=== PATIENT | male | born 1980 | race Caucasian/White ===

== ENCOUNTER 2019-04-05 13:36 | Emergency (ER) | payer OTHER, MEDICAID, SELFPAY ==
[2019-04-05 13:39] VITALS: BP 133/75; PULSE 77; RESP 14; TEMP 36.6; O2SAT 100; BMI 23.0
--- NOTE | 2019-04-05 15:32 | ED_ITS ---
HPI - Back Pain/Injury <DONNA Downey - Last Filed: 04/05/19 21:47> General Chief Complaint: Back Pain/Injury Stated Complaint: back pain Time Seen by Provider: 04/05/19 14:45 Source: patient History of Present Illness HPI Narrative: 39-year-old male presents to the emergency department complaining of right-sided lumbar back pain after throwing a tire into a truck 2 days ago. He states the pain is a dull aching spasming pain that has been worse today. Patient states the pain is worse with movement and bending over. Pain is better with walking. Patient denies any loss of bowel or bladder control, trauma to the area, numbness, tingling, loss of sensation, fevers, chills, nausea, vomiting, diarrhea, or other concerns. He states he has had back spasms in the past which usually resolve in about 2 weeks. Patient states that methocarbamol and tizanidine do not help with his muscle spasms. Related Data Home Medications Medication Instructions Recorded Confirmed quetiapine [Seroquel] 300 mg PO HS #0 tab 12/22/15 Previous Rx's Medication Instructions Recorded cyclobenzaprine 10 mg PO TID #20 tab 04/05/19 cyclobenzaprine 10 mg PO TID PRN #20 tab 04/05/19 Allergies Allergy/AdvReac Type Severity Reaction Status Date / Time Sulfa (Sulfonamide Allergy Unknown Verified 04/05/19 13:39 Antibiotics) [SULFA (SULFONAMIDE ANTIBIOTICS)] Review of Systems <DONNA Downey - Last Filed: 04/05/19 21:47> Review of Systems Narrative: REVIEW OF SYSTEMS: GENERAL: Denies fever or chills. HENT: No head trauma. EYES: No double vision or vision loss. CARDIOVASCULAR: No chest pain or syncope. RESPIRATORY: No shortness of breath or cough. GASTROINTESTINAL: No nausea, vomiting, diarrhea, or constipation. GENITOURINARY: No flank pain or dysuria. MUSCULOSKELETAL: Complains of right-sided lumbar pain, see HPI. INTEGUMENTARY: No rash, lesions, or pruritus. NEURO: No numbness, tingling. PSYCH: No behavior or mood changes. Patient History <DONNA Downey - Last Filed: 04/05/19 21:47> Medical History No significant medical problems (Acute) Social History Smoking Status: Current every day smoker Smoking Status: Current every day smoker alcohol intake frequency: holidays/special occasions only Substance Use Type: does not use Exam <DONNA Downey - Last Filed: 04/05/19 21:47> Initial Vital Signs Initial Vital Signs: Vital Signs Temperature 97.8 F 04/05/19 13:39 Pulse Rate 77 04/05/19 13:39 Respiratory Rate 14 04/05/19 13:39 Blood Pressure 133/75 04/05/19 13:39 Pulse Oximetry 100 04/05/19 13:39 PHYSICAL EXAMINATION: GENERAL: Well groomed, alert, and cooperative. Answers questions promptly and appropriately. Vital signs noted. HENT: Normocephalic, atraumatic. EYES: Symmetrical, sclera white, no periorbital swelling. CARDIOVASCULAR: S1 and S2 sounds normal. Regular rate and rhythm, no murmurs, clicks, or bruits. No pedal edema. RESPIRATORY: Normal respiratory rate, trachea midline, airway patent. No stridor, nasal flaring or accessory muscle use. Lungs are clear in all [place]. MUSCULOSKELETAL: Paraspinal vertebral tenderness worse on the left aspect versus the right, however present on both. Left lower lumbar tendeness along sciatica region, positive straight leg test. Patient is decreased flexion of spine due to pain. Normal gait and coordination. Equal tone and mass bilaterally. No spinal tenderness or deformities. EXTREMITIES: CMS intact. Pedal pulses 2+ intact bilaterally. SKIN: Warm, dry, soft, appropriate color for ethnicity. No lesions, rashes, or wounds. NEURO: Alert and Oriented X 3. No sensory deficits. Light touch sensation intact to medial and lateral aspect of lower extremities. PSYCH: Appropriate affect and mood. <Khari House MD - Last Filed: 04/09/19 08:07> Initial Vital Signs Initial Vital Signs: Vital Signs Temperature 97.8 F 04/05/19 13:39 Pulse Rate 77 04/05/19 13:39 Respiratory Rate 14 04/05/19 13:39 Blood Pressure 133/75 04/05/19 13:39 Pulse Oximetry 100 04/05/19 13:39 Course <DONNA Downey - Last Filed: 04/05/19 21:47> Course Course Narrative: Patient was given injection of Toradol and 5 mg of Valium which significantly helped with pain. Patient was given a ride home by his significant other. Orders Ordered: Discontinued Medications Diazepam (Valium) 5 mg PO NOW ONE Stop: 04/05/19 15:25 Last Admin: 04/05/19 15:40 Dose: 5 mg Documented by: WILMA Ketorolac Tromethamine (Toradol) 30 mg IM NOW ONE Stop: 04/05/19 15:23 Last Admin: 04/05/19 15:40 Dose: 30 mg Documented by: WILMA Vital Signs Vital signs: Vital Signs - 8 hr 04/05/19 16:05 Pulse Rate 83 Respiratory Rate 12 Blood Pressure [Left Arm] 110/82 Pulse Oximetry 97 <Khari House MD - Last Filed: 04/09/19 08:07> Orders Ordered: Discontinued Medications Diazepam (Valium) 5 mg PO NOW ONE Stop: 04/05/19 15:25 Last Admin: 04/05/19 15:40 Dose: 5 mg Documented by: WILMA Ketorolac Tromethamine (Toradol) 30 mg IM NOW ONE Stop: 04/05/19 15:23 Last Admin: 04/05/19 15:40 Dose: 30 mg Documented by: WILMA Vital Signs Vital signs: Vital Signs - 8 hr 04/05/19 16:05 Pulse Rate 83 Respiratory Rate 12 Blood Pressure [Left Arm] 110/82 Pulse Oximetry 97 MDM - Back Pain/Injury <DONNA Downey - Last Filed: 04/05/19 21:47> Medical Records Attestation: I reviewed the patient's medical records. Lab Data Attestation: I reviewed the patient's lab results. MDM Narrative Medical decision making narrative: This is a 39-year-old male who presents emergency department with what appears to be musculoskeletal pain after lifting a tire into a truck. Less concern for spinal fracture due to lack of spinal tenderness and lack of trauma. Differential includes muscle strain, muscle spasms, and lumbar strain, these diagnoses are most likely. However, differential also includes degenerative disc disease and arthritis. Less likely cauda equina due to full sensation of lower extremities, and lack of loss of bowel or bladder control. Patient was discharged with cyclobenzaprine encouraged to take ibuprofen for the next few days. Patient agree of plan of care verbalized understanding. He was encouraged to follow up with his primary care provider in 1-2 weeks for further evaluation of his back pain. Discharge Plan Departure Patient Disposition: Home Clinical Impression: Back spasm Lumbar strain Qualifiers: Encounter type: initial encounter Qualified Code(s): S39.012A - Strain of muscle, fascia and tendon of lower back, initial encounter Discharge Date/Time: 04/05/19 16:17 Instructions: DI for Low Back Pain, DI for Back Spasm Activity Restrictions/Additional Instructions: Thank you for entrusting me with your care today. As discussed, I suspect your back pain is most likely caused by a lumbar strain and back spasms. I prescribed you a muscle relaxer, please be aware that this medication can make you drowsy, do not drive while taking this. Your medication was sent to [facility]. I suggest taking 600 mg of ibuprofen every 6 hours for the next 2-3 days to help with pain. Follow up with your primary care provider in 1-2 weeks for further evaluation. Return emergency department for new or worsening symptoms such as numbness, tingling, loss of bowel or bladder control, or other concerns. Prescriptions: New cyclobenzaprine 10 mg tablet 10 mg PO TID Qty: 20 RF: 0 cyclobenzaprine 10 mg tablet 10 mg PO TID PRN (Reason: muscle spasm) Qty: 20 RF: 0 No Action quetiapine [Seroquel] 300 MG tablet 300 mg PO HS Qty: 0 RF: 0
[2019-04-05] MEDS: KETOROLAC 60 MG/2 ML VIAL 30 MG IM (15:40)
[2019-04-05] MEDS: diazePAM 5 MG TABLET PO (15:40)
[2019-04-05 16:05] VITALS: BP 110/82; PULSE 83; RESP 12; O2SAT 97
== END 2019-04-05 16:17 | disposition home or self-care (01) ==
PROVIDERS: Emergency Provider Nurse Practitioner
DX: M62.830 Muscle spasm of back (principal); S39.012A Strain of muscle, fascia and tendon of lower back, initial encounter
CPT/HCPCS: 96372; 99283; J1885

== ENCOUNTER 2019-10-01 12:16 | Emergency (ER) | payer OTHER, MEDICAID, SELFPAY ==
[2019-10-01 12:38] VITALS: BP 130/76; PULSE 90; RESP 12; TEMP 36.7; O2SAT 98; BMI 23.6
[2019-10-01 13:00] VITALS: BP 108/62; PULSE 89; O2SAT 98
[2019-10-01 13:45] VITALS: BP 105/65; PULSE 77; RESP 14; O2SAT 98
--- NOTE | 2019-10-01 15:04 | ED_ITS ---
HPI - Skin/Abscess/Foreign Bdy <DONNA Cervantes - Last Filed: 10/01/19 15:30> General Chief complaint: Skin/Abscess/Foreign Body Stated complaint: abcess on his left arm Time Seen by Provider: 10/01/19 12:44 Source: patient Mode of arrival: Ambulatory Limitations: no limitations History of Present Illness HPI narrative: This is a 39-year-old male, smoker and IV heroin drug use prese nts to ED with chief complain of 2nd abscess developing on non dominant left arm in radial aspect of antecubital fossa slightly above the current I and D abscess. Patient has been seen several walk-in clinic in [facility] over 1 week and this is his 4th visit to hospital/clinic since he had initial visit to the clinic. Patient states he has a frustrated that abscess has not been drained as much. The patient was started on clindamycin initially and changed to doxycycline yesterday after the culture result came back as MRSA. Patient is also taking meloxicam 7.5 mg b.i.d. for pain management. Patient reports relapsed after cleaned from using drugs and currently uses heroin and appears to be he is under the influence before coming into ED. Patient denies fever, chills, nausea or vomiting at this time. Patient has been manually expressing during hot shower on I and D site to express discharge and has been using warm pack occasionally. Related Data Home Medications Medication Instructions Recorded Confirmed quetiapine [Seroquel] 300 mg PO HS #0 tab 12/22/15 Previous Rx's Medication Instructions Recorded cyclobenzaprine 10 mg PO TID #20 tab 04/05/19 cyclobenzaprine 10 mg PO TID PRN #20 tab 04/05/19 Allergies Allergy/AdvReac Type Severity Reaction Status Date / Time Sulfa (Sulfonamide Allergy Unknown Verified 04/05/19 13:39 Antibiotics) [SULFA (SULFONAMIDE ANTIBIOTICS)] Review of Systems <DONNA Cervantes - Last Filed: 10/01/19 15:30> Review of Systems Narrative: General: Denies fever, chills, fatigue, malaise, sweats. HEENT: Denies sinus pain, ear pain, sore throat, difficulty swallowing, dizziness. Respiratory: Denies dyspnea, cough, wheezing, hemoptysis, sputum. Cardiovascular: Denies chest pain, palpitations, orthopnea, edema. Gastrointestinal: Denies nausea, vomiting, abdominal pain, diarrhea, constipation, melena. : Denies dysuria, frequency, incontinence, hematuria, urinary retention. Musculoskeletal: Denies weakness, joint pain or bony pain. Skin: See HPI Neurologic: Denies weakness, headache, numbness, change in speech, confusion, seizures, incoordination. Psychiatric: No concerning psychosocial issues. 12-point review of systems is negative except for those stated above. Patient History <DONNA Cervantes - Last Filed: 10/01/19 15:30> Medical History No significant medical problems (Acute) Social History (Updated 10/01/19 @ 15:21 by DONNA Cervantes) Smoking Status: Current every day smoker substance use type: heroin and IV drugs Smoking Status: Current every day smoker alcohol intake frequency: holidays/special occasions only Substance Use Type: does not use Exam <DONNA Cervantes - Last Filed: 10/01/19 15:30> Narrative Exam Narrative: General appearance: well developed, well nourished, in no acute distress. Head: normocephalic, atraumatic, no scalp lesions, non-tender. ENT: Bilateral auditory canals and tympanic membranes clear. Hearing grossly intact. Nose without bleeding, purulent discharge, septal hematoma or deviation. Turbinate without erythema or swelling. Facial sinuses nontender to palpate. Mucous membrane moist, no mucosal lesion. Throat without erythema, tonsillar hypertrophy or exudate. Uvula in midline, airway patent. Neck/Thyroid: neck supple, full range of motion, no visible masses or meningeal signs. No JVD, non-tender without lymphadenopathy. Skin: Approximately 2 cm vertical incision with about 1cm tunneling in left slightly inferior to antecubital fossa packed with string draining purulent discharge. Second erythematous and indurated nodule in about 3 cm in diameter in radial aspect of left antecubital fossae without fluctuance near I and D site. Slightly warm to palpate. Denies significant pain per palpation. There was several well-healed incisional wounds in right volar wrist, right anterior upper thigh from previous I and D's. Warm and dry and appropriate color for ethnicity. Heart: no clubbing, no cyanosis, no edema. Lungs: Breathing even and unlabored. No stridor. No accessory muscles used. Able to speak in full sentences. Chest: normal shape and expansion. Abdomen: non-obese, non-distended. Neurologic: alert and oriented but appears to be drowsy with difficulty with keeping eyes fully opened. Patient is conversive below appropriately. Cognitive exam, MINK SLICER and PNS grossly intact on informal exam. Psych: good eye contact, normal affect. Initial Vital Signs Initial Vital Signs: Vital Signs Temperature 98.1 F 10/01/19 12:38 Pulse Rate 90 10/01/19 12:38 Respiratory Rate 12 10/01/19 12:38 Blood Pressure 130/76 10/01/19 12:38 Pulse Oximetry 98 10/01/19 12:38 <Diego Middleton MD - Last Filed: 10/01/19 19:06> Initial Vital Signs Initial Vital Signs: Vital Signs Temperature 98.1 F 10/01/19 12:38 Pulse Rate 90 10/01/19 12:38 Respiratory Rate 12 10/01/19 12:38 Blood Pressure 130/76 10/01/19 12:38 Pulse Oximetry 98 10/01/19 12:38 Scores <DONNA Cervantes - Last Filed: 10/01/19 15:30> qSOFA Altered Mental Status (GCS <15): No Respiratory rate greater than/equal to 22: No Systolic blood pressure less than or equal to 100: No qSOFA Total: 0 0-1 Not High Risk 1-3 High risk Course <DONNA Cervantes - Last Filed: 10/01/19 15:30> Vital Signs Vital signs: Vital Signs - 8 hr 10/01/19 12:38 10/01/19 13:00 10/01/19 13:45 Temperature 98.1 F Pulse Rate 90 89 77 Respiratory Rate 12 14 Blood Pressure 130/76 108/62 105/65 Pulse Oximetry 98 98 98 <Diego Middleton MD - Last Filed: 10/01/19 19:06> Vital Signs Vital signs: Vital Signs - 8 hr 10/01/19 12:38 10/01/19 13:00 10/01/19 13:45 Temperature 98.1 F Pulse Rate 90 89 77 Respiratory Rate 12 14 Blood Pressure 130/76 108/62 105/65 Pulse Oximetry 98 98 98 MDM - Skin/Abscess/Foreign Bdy <DONNA Cervantes - Last Filed: 10/01/19 15:30> Differential Diagnosis Differential diagnosis: Likely abscess of skin or subcutaneous tissue and cellulitis MDM Narrative Medical decision making narrative: This is a 39 year male who presents to ED with wound recheck on I&D site and another abscess adjacent to I&D site. Second nodule appears to be not ready for I&D with indurated erythematous nodule in radial aspect of antecubital fossae. Patient advised to use warm pack frequently to speed the process. He is currently taking culture and sensitivity appropriate doxycycline that has been prescribed by other clinic. Patient is afebrile with within normal vital signs. qSOFA score is 0. Patient has been seen at other clinic for repacking procedure. I have repacked his wound today. Return precautions were discussed with the patient and patient verbalized understanding in agreement with treatment plan. Discharge Plan Departure Patient Disposition: Home Clinical Impression: Wound abscess Discharge Date/Time: 10/01/19 13:46 Instructions: DI for Skin Abscess Activity Restrictions/Additional Instructions: You have been diagnosed with [left arm abscess, I and D has been done previously and today we checked wound, wound repacking. The new abscess on your left inner elbow appears be not ready for an abscess since it has mostly indurated nodule. Please continue with frequent warm pack and soaking to speed the process to get ready for I&D.]. What to do: *Take your medications as directed. Please continue your current doxycycline as directed *Follow up with your primary care provider in 2-3 days, call for an appointment. Let them know you were seen in the ED and that we asked you to be seen in follow up and wound recheck and packing. *Return to ED if you have any new, worsening, or concerning symptoms, such as [fever, chills, nausea, vomiting, increasing pain/swelling/warmth, chest pain, breathing difficulty or any acute concerns]. Prescriptions: No Action quetiapine [Seroquel] 300 MG tablet 300 mg PO HS Qty: 0 RF: 0 cyclobenzaprine 10 mg tablet 10 mg PO TID Qty: 20 RF: 0 cyclobenzaprine 10 mg tablet 10 mg PO TID PRN (Reason: muscle spasm) Qty: 20 RF: 0
== END 2019-10-01 13:46 | disposition home or self-care (01) ==
PROVIDERS: Emergency Provider Nurse Practitioner Family
DX: L02.414 Cutaneous abscess of left upper limb (principal); F19.90 Other psychoactive substance use, unspecified, uncomplicated
CPT/HCPCS: 99281

== ENCOUNTER 2020-05-23 18:44 | Emergency (ER) | payer OTHER, MEDICAID, SELFPAY ==
[2020-05-23 18:51] VITALS: BP 137/80; PULSE 118; RESP 20; TEMP 38.3; O2SAT 97; BMI 23.7
== END 2020-05-23 19:18 | disposition left against medical advice (07) ==
PROVIDERS: Emergency Provider Emergency Medicine
CPT/HCPCS: 99281

== ENCOUNTER 2020-05-24 15:25 | Emergency (ER) | payer OTHER, MEDICAID, SELFPAY ==
[2020-05-24 15:42] VITALS: BP 127/79; PULSE 115; RESP 16; TEMP 37.6; O2SAT 96; BMI 23.0
--- NOTE | 2020-05-24 15:49 | DI.RAD.S_ITS ---
PROCEDURE: XR CHEST 1V INDICATIONS: suspected sepsis TECHNIQUE: One view of the chest was acquired. COMPARISON: None. FINDINGS: Surgical changes and devices: None. Lungs and pleura: Lungs are clear. No pleural effusions or pneumothorax. Mediastinum: Mediastinal contours appear normal. Heart size is normal. Bones and chest wall: No suspicious bony lesions. Overlying soft tissues appear unremarkable. IMPRESSION: No evidence acute pulmonary process. Dictated by: Tye Nixon M.D. on 05/24/2020 at 16:30 Approved by: Tye Nixon M.D. on 05/24/2020 at 16:31
[2020-05-24] MEDS: KETOROLAC 60 MG/2 ML VIAL 30 MG IM (16:50)
[2020-05-24] MEDS: LORazepam 0.5 MG TABLET PO (16:50)
[2020-05-24 16:57] VITALS: BP 117/80; PULSE 117; RESP 24; TEMP 37.7; O2SAT 99
--- NOTE | 2020-05-24 18:03 | ED_ITS ---
HPI - Skin/Abscess/Foreign Bdy General Chief complaint: Skin/Abscess/Foreign Body Stated complaint: a few abcesses he wants looked at Time Seen by Provider: 05/24/20 17:51 History of Present Illness HPI narrative: 40-year-old gentleman with a history of IV drug use presents with abscess draining on the medial aspect of his right calf and cellulitis with firmness without full fluctuance developing the right forearm. He was successful on Suboxone for an extended period of time in over the last 3 months has had a return to use of IV heroin. Does not describe significant fevers, cough, chest pain, abdominal pain, dysuria, diarrhea or constipation. Related Data Home Medications Medication Instructions Recorded Confirmed quetiapine [Seroquel] 300 mg PO HS #0 tab 12/22/15 Previous Rx's Medication Instructions Recorded cyclobenzaprine 10 mg PO TID #20 tab 04/05/19 cyclobenzaprine 10 mg PO TID PRN #20 tab 04/05/19 buprenorphine-naloxone [Suboxone] 3 film BUCCAL DAILY #9 ea 05/24/20 cephalexin 500 mg PO TID #21 cap 05/24/20 clindamycin HCl 300 mg PO TID #21 cap 05/24/20 Allergies Allergy/AdvReac Type Severity Reaction Status Date / Time Sulfa (Sulfonamide Allergy Unknown Verified 05/23/20 18:54 Antibiotics) [SULFA (SULFONAMIDE ANTIBIOTICS)] Review of Systems Review of Systems Narrative: Remainder of review of systems including constitutional, ENT, cardiovascular, respiratory, GI, , musculoskeletal, skin, neurologic and psychiatric systems reviewed and are unremarkable except as noted in HPI. Patient History Medical History IVDU (intravenous drug user) Social History Smoking Status: Current every day smoker substance use type: heroin and IV drugs Smoking Status: Current every day smoker tobacco type: cigarettes alcohol intake frequency: holidays/special occasions only Substance Use Type: heroin Exam Narrative Exam Narrative: General: Healthy appearing, in no acute distress. Able to give a complete and coherent history. Well-nourished well-developed HEENT: Moist mucous membranes, normal sclera with reactive pupils, Neck: No JVD, supple Respiratory: Lungs are clear to auscultation, no wheezing no rales no rhonchi. Full and symmetrical air movement Cardiac: Regular rate and rhythm no murmurs with careful auscultation, no bruits Abdomen: Soft, nontender, good bowel tones, no flank pain Skin: Warm and dry, developing cellulitis approximately 5 x 5 cm with central area of firmness but no fluctuance on the right forearm. Cellulitis proximally 10 x 10 cm with a 5 cm area of fluctuance is beginning to drain the medial aspect of the right calf. Healing abscess left groin with no residual cellulitis drainage or pain but fiber center still appreciated. Neurologic: Grossly neurologically intact with no obvious asymmetries or abnormalities Extremities: No trauma, well perfused Psych: Cooperative, appropriate insight and affect Initial Vital Signs Initial Vital Signs: Vital Signs Temperature 99.6 F 05/24/20 15:42 Pulse Rate 115 H 05/24/20 15:42 Respiratory Rate 16 05/24/20 15:42 Blood Pressure 127/79 05/24/20 15:42 Pulse Oximetry 96 05/24/20 15:42 Course Orders Ordered: Discontinued Medications Sodium Chloride (Normal Saline 0.9%) 1,000 mls @ 1,000 mls/hr IV BOLUS ONE Stop: 05/24/20 16:48 Last Infusion: 05/24/20 20:15 Dose: 0 mls/hr Documented by: Admin: 05/24/20 18:49 Dose: 1,000 mls/hr Documented by: BRENDAN Vancomycin HCl/Dextrose (Vancomycin) 1,500 mg in 300 mls @ 200 mls/hr IV NOW ONE Stop: 05/24/20 20:31 Last Infusion: 05/24/20 21:45 Dose: 0 mls/hr Documented by: Admin: 05/24/20 20:15 Dose: 200 mls/hr Documented by: BRENDAN Ceftriaxone Sodium/Dextrose (Rocephin) 2 gm in 50 mls @ 100 mls/hr IV NOW ONE Stop: 05/24/20 19:31 Last Infusion: 05/24/20 20:15 Dose: 0 mls/hr Documented by: Admin: 05/24/20 19:35 Dose: 100 mls/hr Documented by: BRENDAN Ketorolac Tromethamine (Ketorolac 60 Mg/2 Ml Vial) 30 mg IM NOW ONE Stop: 05/24/20 16:42 Last Admin: 05/24/20 16:50 Dose: 30 mg Documented by: BEVERLY Lorazepam (Lorazepam 0.5 Mg Tablet) 0.5 mg PO NOW ONE Stop: 05/24/20 16:42 Last Admin: 05/24/20 16:50 Dose: 0.5 mg Documented by: BEVERLY Nicotine (Nicotine 21 Mg Patch) 21 mg TOP NOW ONE Stop: 05/24/20 17:52 Last Admin: 05/24/20 18:48 Dose: 21 mg Documented by: BRENDAN Vital Signs Vital signs: Vital Signs - 8 hr 05/24/20 22:27 Pulse Rate 82 Respiratory Rate 14 Blood Pressure 116/75 Pulse Oximetry 98 MDM - Skin/Abscess/Foreign Bdy Medical Records Attestation: I reviewed the patient's medical records. Lab Data Attestation: I reviewed the patient's lab results. Result diagrams: 05/24/20 18:22 05/24/20 18:22 Labs: Lab Results 05/24/20 05/24/20 05/24/20 Range/Units 18:22 18:22 18:22 WBC 12.2 H (4.5-11.0) X10^3/uL RBC 3.81 L (4.5-5.9) X10^6/uL Hgb 11.3 L (13.5-17.5) g/dL Hct 33.4 L (41-53) % MCV 87.7 (80-100) fL MCH 29.7 (26-34) PG MCHC 33.9 (30-36) % RDW 14.1 (11.6-14.8) % Plt Count 239 (150-400) X10^3/uL Neut % (Auto) 76.4 H (50-75) % Lymph % (Auto) 13.6 L (25-40) % [place] % (Auto) 8.7 (3-14) % Eos % (Auto) 1.0 L (2-4) % Baso % (Auto) 0.3 (0-2) % Neut # (Auto) 9300 H (8186-7215) /uL Lymph # (Auto) 1700 (3898-6251) /uL [place] # (Auto) 1100 H (0-900) /uL Eos # (Auto) 100 (0-450) /uL Baso # (Auto) 0 (0-100) /uL PT 15.3 H (10.1-12.7) SECONDS INR 1.4 H (0.9-1.3) APTT 32 (26.4-36.2) SECONDS Sodium 131 L (137-145) mmol/L Potassium 4.1 (3.4-5.1) mmol/L Chloride 99 (98-107) mmol/L Carbon Dioxide 28 (22-32) mmol/L BUN 9 (9-20) mg/dL Creatinine 0.77 (0.66-1.25) mg/dL Estimated GFR > 60.0 (>60) mL/min BUN/Creatinine Ratio 11.7 (6-22) Glucose 122 H (70-100) mg/dL Lactate (0.7-2.1) mmol/L Calcium 8.6 (8.4-10.2) mg/dL Total Bilirubin 0.4 (0.2-1.3) mg/dL AST 25 (17-59) IU/L ALT 15 (<50) IU/L Alkaline Phosphatase 63 (38-126) U/L Total Protein 6.5 (6.3-8.2) g/dL Albumin 3.5 (3.5-5.0) g/dL Globulin 3.0 (1.7-4.1) g/dL Albumin/Globulin Ratio 1.2 (1.0-2.8) Lipase 23 (23-300) U/L Procalcitonin 0.06 (<0.5) ng/mL 05/24/20 Range/Units 18:22 WBC (4.5-11.0) X10^3/uL RBC (4.5-5.9) X10^6/uL Hgb (13.5-17.5) g/dL Hct (41-53) % MCV (80-100) fL MCH (26-34) PG MCHC (30-36) % RDW (11.6-14.8) % Plt Count (150-400) X10^3/uL Neut % (Auto) (50-75) % Lymph % (Auto) (25-40) % [place] % (Auto) (3-14) % Eos % (Auto) (2-4) % Baso % (Auto) (0-2) % Neut # (Auto) (3853-6754) /uL Lymph # (Auto) (3976-1266) /uL [place] # (Auto) (0-900) /uL Eos # (Auto) (0-450) /uL Baso # (Auto) (0-100) /uL PT (10.1-12.7) SECONDS INR (0.9-1.3) APTT (26.4-36.2) SECONDS Sodium (137-145) mmol/L Potassium (3.4-5.1) mmol/L Chloride (98-107) mmol/L Carbon Dioxide (22-32) mmol/L BUN (9-20) mg/dL Creatinine (0.66-1.25) mg/dL Estimated GFR (>60) mL/min BUN/Creatinine Ratio (6-22) Glucose (70-100) mg/dL Lactate 1.0 (0.7-2.1) mmol/L Calcium (8.4-10.2) mg/dL Total Bilirubin (0.2-1.3) mg/dL AST (17-59) IU/L ALT (<50) IU/L Alkaline Phosphatase (38-126) U/L Total Protein (6.3-8.2) g/dL Albumin (3.5-5.0) g/dL Globulin (1.7-4.1) g/dL Albumin/Globulin Ratio (1.0-2.8) Lipase (23-300) U/L Procalcitonin (<0.5) ng/mL Urine Dip Bedside Urine Glucose Negative Bedside Urine Bilirubin - Negative Bedside Urine Ketone - Negative Urine Specific [place] 1.015 Bedside Urine Occult Blood - Negative Bedside Urine pH 7.0 Bedside Urine Protein - Negative Bedside Urine Urobilinogen - Negative Bedside Urine Nitrite - Negative Bedside Urine Leukocytes - Negative Esterase MDM Narrative Medical decision making narrative: 40-year-old gentleman with a history of IV drug use significant difficulty obtaining IV access. A left external jugular line was placed by me. He is noted to have draining abscess right calf that is opened with an 11 blade needle cultured abscess cavity is explored and rinsed with saline. Area of cellulitis and phlegmon on the forearm is not yet developed into a drainable abscess. No evidence of endocarditis or sepsis. Given a dose of vancomycin and ceftriaxone in the emergency department and will be discharged home with a week of clindamycin and Keflex (is allergic to Septra ). We also discussed his IV drug use and return to Suboxone. He is interested in returning to Suboxone use. I have given him a prescription for 3 days which will get him through his [facility] appointment to be scheduled for Tuesday. At this point he is safe for home discharge Discharge Plan Departure Patient Disposition: Home Clinical Impression: Abscess of skin or subcutaneous tissue Qualifiers: Site of cutaneous abscess: extremity Site of cutaneous abscess of extremity: lower extremity Laterality: right Qualified Code(s): L02.415 - Cutaneous abscess of right lower limb Cellulitis Qualifiers: Site of cellulitis: extremity Site of cellulitis of extremity: upper extremity Laterality: right Qualified Code(s): L03.113 - Cellulitis of right upper limb Instructions: DI for Skin Abscess Activity Restrictions/Additional Instructions: Thank you for coming in tonight There is no evidence of overwhelming infection The abscess on your calf has been drained, please pull the packing out on Tuesday or Tuesday You will need to complete course of antibiotics and I am going to have you use both clindamycin and Keflex. Prescriptions have been electronically sent to [facility] in [place] I have given you 3 days of Suboxone, please contact [facility] on Tuesday to set up follow-up appointment. Getting back to Suboxone and sobriety is going to be 1 of the healthiest things you can do for yourself If you have fevers, chills or worsening signs of infection, please return to the emergency department Prescriptions: New clindamycin HCl 300 mg capsule 300 mg PO TID Qty: 21 RF: 0 cephalexin 500 mg capsule 500 mg PO TID Qty: 21 RF: 0 buprenorphine-naloxone [Suboxone] 8-2 mg film 3 film buccal DAILY Qty: 9 RF: 0 No Action quetiapine [Seroquel] 300 MG tablet 300 mg PO HS Qty: 0 RF: 0 cyclobenzaprine 10 mg tablet 10 mg PO TID Qty: 20 RF: 0 cyclobenzaprine 10 mg tablet 10 mg PO TID PRN (Reason: muscle spasm) Qty: 20 RF: 0
--- NOTE | 2020-05-24 18:06 | PC.NURSE ---
patient has multiple abscess on his body. right inner calf, right outer calf, left inguinal space, right inner forearm
[2020-05-24 18:41] LABS: INR 1.4 (0.9-1.3); Prothrombin Time 15.3 SECONDS (10.1-12.7)
[2020-05-24 18:44] LABS: PTT Partial Thromboplastin Tim 32 SECONDS (26.4-36.2)
[2020-05-24 18:45] LABS: Add Manual Diff / Slide Review NO; Basophils Absolute Auto 0 /uL (0-100); Basophils Percent Auto 0.3 % (0-2); Eosinophils Absolute Auto 100 /uL (0-450); Hematocrit 33.4 % (41-53); Hemoglobin 11.3 g/dL (13.5-17.5); Lymphocytes Absolute Auto 1700 /uL (1100-4500); Lymphocytes Percent Auto 13.6 % (25-40); Mean Corpuscular HGB Conc 33.9 % (30-36); Mean Corpuscular Hemoglobin 29.7 PG (26-34); Mean Corpuscular Volume 87.7 fL (80-100); Monocytes Absolute Auto 1100 /uL (0-900); Monocytes Percent Auto 8.7 % (3-14); Neutrophils Absolute Auto 9300 /uL (1500-7000); Neutrophils Percent Auto 76.4 % (50-75); Platelet Count 239 X10^3/uL (150-400); Red Blood Cell Count 3.81 X10^6/uL (4.5-5.9); Red Cell Distribution Width 14.1 % (11.6-14.8); White Blood Cell Count 12.2 X10^3/uL (4.5-11.0)
[2020-05-24] MEDS: NICOTINE 21 MG PATCH TOP (18:48)
[2020-05-24] MEDS: SODIUM CHLORIDE 0.9% 1,000 ML 1000 ML IV (18:49)
[2020-05-24 18:56] LABS: Alanine Aminotransferase 15 IU/L (<50); Albumin 3.5 g/dL (3.5-5.0); Albumin Globulin Ratio 1.2 (1.0-2.8); Alkaline Phosphatase 63 U/L (38-126); Aspartate Aminotransferase 25 IU/L (17-59); BUN Creatinine Ratio 11.7 (6-22); Bilirubin Total 0.4 mg/dL (0.2-1.3); Blood Urea Nitrogen 9 mg/dL (9-20); Calcium 8.6 mg/dL (8.4-10.2); Carbon Dioxide 28 mmol/L (22-32); Chloride 99 mmol/L (98-107); Estimated Glomerular Filt Rate > 60.0 mL/min (>60); Glucose 122 mg/dL (70-100); Lipase 23 U/L (23-300); Potassium 4.1 mmol/L (3.4-5.1); Sodium 131 mmol/L (137-145); Total Protein 6.5 g/dL (6.3-8.2)
[2020-05-24 18:57] LABS: HEMOLYSIS 63 (0-50)
[2020-05-24 19:13] LABS: Procalcitonin 0.06 ng/mL (<0.5)
[2020-05-24] MEDS: CEFTRIAXONE 2 GM/50 ML FROZ.PIGGY IV (19:35)
[2020-05-24] MEDS: VANCOMYCIN 1,500 MG/300 ML PIGGYBACK 200 MG IV (20:15)
[2020-05-24 21:26] VITALS: BP 120/74; PULSE 79; RESP 14; O2SAT 98
[2020-05-24 22:27] VITALS: BP 116/75; PULSE 82; RESP 14; O2SAT 98
[2020-05-24] MEDS: LIDOCAINE 1% (PF) 8 ML (22:27)
== END 2020-05-24 22:29 | disposition home or self-care (01) ==
PROVIDERS: Emergency Medicine; Emergency Provider Emergency Medicine
DX: L02.415 Cutaneous abscess of right lower limb (principal); L03.113 Cellulitis of right upper limb
CPT/HCPCS: 10060; 36415; 36569; 71045; 80053; 81003; 83605; 83690; 84145; 85025; 85610; 85730; 87040; 93005; 96361; 96365; 96367; 96372; 99283; 99284; J0696; J1885

== ENCOUNTER 2020-05-26 16:13 | Emergency (ER) | payer OTHER, MEDICAID, SELFPAY ==
[2020-05-26 16:18] VITALS: BP 123/74; PULSE 90; RESP 18; TEMP 36.8; O2SAT 96; BMI 23.0
== END 2020-05-26 18:01 | disposition left against medical advice (07) ==
PROVIDERS: Emergency Provider Emergency Medicine
CPT/HCPCS: 99281

== ENCOUNTER 2020-08-04 14:20 | Emergency (ER) | payer OTHER, MEDICAID, SELFPAY ==
[2020-08-04 14:29] VITALS: BP 133/79; PULSE 84; RESP 16; TEMP 36.1; O2SAT 100; BMI 23.1
--- NOTE | 2020-08-04 14:32 | ED_ITS ---
HPI - Skin/Abscess/Foreign Bdy General Chief complaint: Skin/Abscess/Foreign Body Stated complaint: huge abscess on right thigh Time Seen by Provider: 08/04/20 14:26 Source: patient Mode of arrival: Ambulatory Limitations: no limitations History of Present Illness HPI narrative: Patient is a 40-year-old male who has had some degree of changing story but is here for evaluation of a abscess on his right thigh. He initially thought that it was a bruise that was caused when he hit his leg on a piece of furniture. 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 He has had multiple abscesses in the past requiring incision and drainage. He denies any fevers. Swelling is been worsening during this time. He then told nursing staff that he injected himself with heroin at this point. He told me that he does use heroin but has not injected himself in his leg in ?sometime ?give way he is here for evaluation of an abscess to his right thigh. Related Data Home Medications Medication Instructions Recorded Confirmed quetiapine [Seroquel] 300 mg PO HS #0 tab 12/22/15 Previous Rx's Medication Instructions Recorded cyclobenzaprine 10 mg PO TID #20 tab 04/05/19 cyclobenzaprine 10 mg PO TID PRN #20 tab 04/05/19 buprenorphine-naloxone [Suboxone] 3 film BUCCAL DAILY #9 ea 05/24/20 cephalexin 500 mg PO TID #21 cap 05/24/20 clindamycin HCl 300 mg PO TID #21 cap 05/24/20 doxycycline hyclate 100 mg PO BID 7 Days #14 tab 08/04/20 Allergies Allergy/AdvReac Type Severity Reaction Status Date / Time Sulfa (Sulfonamide Allergy Unknown Verified 08/04/20 14:32 Antibiotics) [SULFA (SULFONAMIDE ANTIBIOTICS)] Review of Systems Constitutional Constitutional: Denies fever(s) Cardiovascular Cardiovascular: Reports system reviewed and no additional complaints, except as documented Respiratory Respiratory: Reports system reviewed and no additional complaints, except as documented Musculoskeletal Comments: Right thigh pain Integumentary/Breasts Skin/Breast: Reports system reviewed and no additional complaints, except as documented Comments: Swelling and redness to right eye Hematologic/Lymphatic On Anticoagulants: No Allergic/Immunologic Allergic/Immunologic: Reports system reviewed and no additional complaints, except as documented Patient History Medical History IVDU (intravenous drug user) Social History Smoking Status: Current every day smoker substance use type: heroin and IV drugs Smoking Status: Current every day smoker tobacco type: cigarettes alcohol intake frequency: holidays/special occasions only Substance Use Type: heroin Exam Initial Vital Signs Initial Vital Signs: Vital Signs Temperature 97.0 F L 08/04/20 14:29 Pulse Rate 84 08/04/20 14:29 Respiratory Rate 16 08/04/20 14:29 Blood Pressure 133/79 08/04/20 14:29 Pulse Oximetry 100 08/04/20 14:29 Const General: cooperative and comfortable Limitations: mental status not altered HENMT Head: normal to inspection and normocephalic Skin Other: Patient with a palm size area of redness and induration on the right anterior thigh. There is fluctuance under this area. Extrem Other: Right hip and right knee unremarkable Psych Appearance: grossly normal and well kempt Procedures Abscess I/D I&D #1: Site: other (Right thigh) Side (if applicable): right Local Anesthetic: lidocaine 1% and with bicarb Amount of anesthesia used (mL): 10 Technique: incised with #11 blade Irrigation: No Packing used?: iodoform Complications: other (None) Course Orders Ordered: Discontinued Medications Lidocaine/Sodium Bicarbonate (Lido 1%/Sod Bicarb 8.4% (10ml) 10 Ml Syringe) 10 ml INJ NOW ONE Stop: 08/04/20 14:34 Vital Signs Vital signs: Vital Signs - 8 hr 08/04/20 14:29 Temperature 97.0 F L Pulse Rate 84 Respiratory Rate 16 Blood Pressure 133/79 Pulse Oximetry 100 MDM - Skin/Abscess/Foreign Bdy MDM Narrative Medical decision making narrative: Has a large abscess/cellulitis on his right thigh. Patient is nontoxic appearing. Bedside ultrasound does confirm an abscess. Incision was made with drainage of a large amount of purulent material. Packing was placed to keep the wound open. Will start the patient on doxycycline is he has been on this in the past and seems to help his symptoms. I do not feel patient needs admitted to the hospital for IV antibiotics. He was given return precautions and care instructions. He expressed understanding and agreement. Discharge Plan Departure Patient Disposition: Home Clinical Impression: Abscess, Cellulitis Instructions: DI for Incision and Drainage of a Skin Abscess, DI for Skin Abscess Activity Restrictions/Additional Instructions: A prescription for antibiotics was electronically transmitted to [email or web address]. I recommend that you start taking them as directed. You can shower like normal. You can pull the packing out in 48 hours and then continue to cover with a bandage. Contact your primary provider for follow-up. Return to the emergency department for any new or worsening symptoms Prescriptions: New doxycycline hyclate 100 mg tablet 100 mg PO BID 7 Days Qty: 14 RF: 0 No Action quetiapine [Seroquel] 300 MG tablet 300 mg PO HS Qty: 0 RF: 0 cyclobenzaprine 10 mg tablet 10 mg PO TID Qty: 20 RF: 0 cyclobenzaprine 10 mg tablet 10 mg PO TID PRN (Reason: muscle spasm) Qty: 20 RF: 0 clindamycin HCl 300 mg capsule 300 mg PO TID Qty: 21 RF: 0 cephalexin 500 mg capsule 500 mg PO TID Qty: 21 RF: 0 buprenorphine-naloxone [Suboxone] 8-2 mg film 3 film buccal DAILY Qty: 9 RF: 0
[2020-08-04] MEDS: LIDO 1%/SOD BICARB 8.4% (10ML) 10 ML SYRINGE INJ (15:16)
[2020-08-04 15:20] VITALS: BP 130/68; PULSE 85; RESP 16; O2SAT 97
== END 2020-08-04 15:23 | disposition home or self-care (01) ==
PROVIDERS: Emergency Provider Emergency Medicine
DX: L02.415 Cutaneous abscess of right lower limb (principal); L03.115 Cellulitis of right lower limb
CPT/HCPCS: 10060; 99283

== ENCOUNTER 2020-08-15 16:56 | Emergency (ER) | payer OTHER, MEDICAID, SELFPAY ==
[2020-08-15 17:03] VITALS: BP 148/86; PULSE 106; RESP 18; TEMP 36.9; O2SAT 96; BMI 23.7
--- NOTE | 2020-08-15 17:08 | ED.SKABFB ---
HPI - Skin/Abscess/Foreign Bdy General Chief complaint: Skin/Abscess/Foreign Body Stated complaint: LEFT EYE ABSCESS Time Seen by Provider: 08/15/20 17:02 Source: patient Mode of arrival: Ambulatory Limitations: no limitations History of Present Illness HPI narrative: Patient is a 40-year-old male. Despite the stated complaint he has a left thigh abscess not a left eye abscess. I evaluated the patient and drained an abscess in his right thigh a couple weeks ago. This was the result of injecting himself intramuscularly. He states that soon after he had the issue with his right thigh he developed redness in his left thigh. It has gotten larger and more painful. Has surrounding redness. He states that he does not use new needles but uses his own needles. He does not sure them with anyone. Has not tried anything for his these symptoms prior to arrival. Related Data Home Medications Medication Instructions Recorded Confirmed quetiapine [Seroquel] 300 mg PO HS #0 tab 12/22/15 Previous Rx's Medication Instructions Recorded cyclobenzaprine 10 mg PO TID #20 tab 04/05/19 cyclobenzaprine 10 mg PO TID PRN #20 tab 04/05/19 buprenorphine-naloxone [Suboxone] 3 film BUCCAL DAILY #9 ea 05/24/20 cephalexin 500 mg PO TID #21 cap 05/24/20 clindamycin HCl 300 mg PO TID #21 cap 05/24/20 doxycycline hyclate 100 mg PO BID 7 Days #14 tab 08/15/20 ibuprofen 800 mg PO TID PRN #30 tab 08/15/20 Allergies Allergy/AdvReac Type Severity Reaction Status Date / Time Sulfa (Sulfonamide Allergy Unknown Verified 08/15/20 17:02 Antibiotics) [SULFA (SULFONAMIDE ANTIBIOTICS)] Review of Systems Constitutional Constitutional: Denies fever(s) Musculoskeletal Musculoskeletal: Denies tingling Comments: Redness and swelling and discomfort to left thigh Integumentary/Breasts Comments: Redness to left thigh Neurologic Neurologic: Denies tingling Hematologic/Lymphatic On Anticoagulants: No Allergic/Immunologic Allergic/Immunologic: Reports system reviewed and no additional complaints, except as documented Patient History Medical History IVDU (intravenous drug user) Social History Smoking Status: Current every day smoker substance use type: heroin and IV drugs Smoking Status: Current every day smoker tobacco type: cigarettes alcohol intake frequency: holidays/special occasions only Substance Use Type: heroin Exam Initial Vital Signs Initial Vital Signs: Vital Signs Temperature 98.5 F 08/15/20 17:03 Pulse Rate 106 H 08/15/20 17:03 Respiratory Rate 18 08/15/20 17:03 Blood Pressure 148/86 H 08/15/20 17:03 Pulse Oximetry 96 08/15/20 17:03 Const General: cooperative HENMT Head: normal to inspection and normocephalic Resp Effort & Inspection: normal respiratory effort Cardio Rate: tachycardic Skin Other: Patient with a large area of redness on his left anterior thigh with a central large area induration. No active drainage. Neuro General: patient alert and patient awake Extrem Other: For range of motion of left hip and left knee. Psych Appearance: grossly normal and well kempt Procedures Abscess I/D I&D #1: Site: lower extremity Side (if applicable): left Local Anesthetic: lidocaine 1% and with bicarb Amount of anesthesia used (mL): 10 Technique: incised with #11 blade Irrigation: No Packing used?: iodoform Complications: other (None) Course Orders Ordered: Discontinued Medications Doxycycline Hyclate (Doxycycline Hyclate 100 Mg Tablet) 100 mg PO NOW ONE Stop: 08/15/20 17:24 Ibuprofen (Ibuprofen 400 Mg Tablet) 800 mg PO NOW ONE Stop: 08/15/20 17:24 Lidocaine/Sodium Bicarbonate (Lido 1%/Sod Bicarb 8.4% (10ml) 10 Ml Syringe) 10 ml INJ NOW ONE Stop: 08/15/20 17:09 Last Admin: 08/15/20 17:14 Dose: 10 ml Documented by: Vital Signs Vital signs: Vital Signs - 8 hr 08/15/20 17:03 Temperature 98.5 F Pulse Rate 106 H Respiratory Rate 18 Blood Pressure 148/86 H Pulse Oximetry 96 MDM - Skin/Abscess/Foreign Bdy MDM Narrative Medical decision making narrative: Physical exam today consistent with abscess and surrounding cellulitis on his left thigh. Is very similar in appearance to what was on his right thigh. Bedside ultrasound shows a large abscess. This abscess was drained with local anesthesia. A large amount of purulent material was drained. Packing was placed to keep the wound open. Last time patient was here he stated that he received doxycycline. We will place him back on this medication. He is given a dose here in the emergency department. He was given return precautions and follow-up instructions. I do feel that a trial of oral antibiotics at home is warranted in this case however he was instructed to return if his symptoms worsen. Discharge Plan Departure Patient Disposition: Home Clinical Impression: Abscess, Cellulitis Instructions: DI for Incision and Drainage of a Skin Abscess Activity Restrictions/Additional Instructions: Like last time expect drainage from the wound. The packing can be removed in 48 hours of and has not fallen out by than on its own. Take the antibiotics as directed. You can shower like normal. Return to the emergency department for any new or worsening symptoms Prescriptions: New doxycycline hyclate 100 mg tablet 100 mg PO BID 7 Days Qty: 14 RF: 0 ibuprofen 800 mg tablet 800 mg PO TID PRN (Reason: pain) Qty: 30 RF: 0 No Action quetiapine [Seroquel] 300 MG tablet 300 mg PO HS Qty: 0 RF: 0 cyclobenzaprine 10 mg tablet 10 mg PO TID Qty: 20 RF: 0 cyclobenzaprine 10 mg tablet 10 mg PO TID PRN (Reason: muscle spasm) Qty: 20 RF: 0 clindamycin HCl 300 mg capsule 300 mg PO TID Qty: 21 RF: 0 cephalexin 500 mg capsule 500 mg PO TID Qty: 21 RF: 0 buprenorphine-naloxone [Suboxone] 8-2 mg film 3 film buccal DAILY Qty: 9 RF: 0
[2020-08-15] MEDS: LIDO 1%/SOD BICARB 8.4% (10ML) 10 ML SYRINGE INJ (17:14)
[2020-08-15] MEDS: IBUPROFEN 400 MG TABLET 800 MG PO (17:41)
[2020-08-15] MEDS: DOXYCYCLINE HYCLATE 100 MG TABLET PO (17:41)
[2020-08-15 17:51] VITALS: BP 119/69; PULSE 90; RESP 14; O2SAT 98
== END 2020-08-15 17:53 | disposition home or self-care (01) ==
PROVIDERS: Emergency Provider Emergency Medicine
DX: L02.416 Cutaneous abscess of left lower limb (principal); L03.116 Cellulitis of left lower limb
CPT/HCPCS: 10060; 99283

== ENCOUNTER 2020-09-24 17:31 | Emergency (ER) | payer OTHER, MEDICAID, SELFPAY ==
[2020-09-24 17:47] VITALS: BP 133/88; PULSE 71; RESP 18; TEMP 36.4; O2SAT 100; BMI 23.0
--- NOTE | 2020-09-24 18:03 | ED.SKABFB ---
HPI - Skin/Abscess/Foreign Bdy General Chief complaint: Skin/Abscess/Foreign Body Stated complaint: cluster of abcesses on hip Time Seen by Provider: 09/24/20 17:42 Source: patient Mode of arrival: Ambulatory Limitations: no limitations History of Present Illness HPI narrative: Steven presents today with chief complaint swelling and probable abscess on his right leg. He injects heroin and has had numerous abscesses in the past. He has noticed some pain is upper thigh and there is a wound near his right ankle with some redness. He denies any significant fever, decreased range of motion, difficulty walking, drainage, or any other acute concerns or complaints at this time. Related Data Home Medications Medication Instructions Recorded Confirmed quetiapine 300 mg tablet (Seroquel) 300 mg PO HS #0 tab 12/22/15 Previous Rx's Medication Instructions Recorded cyclobenzaprine 10 mg tablet 10 mg PO TID #20 tab 04/05/19 cyclobenzaprine 10 mg tablet 10 mg PO TID PRN #20 tab 04/05/19 buprenorphine 8 mg-naloxone 2 mg 3 film BUCCAL DAILY #9 ea 05/24/20 sublingual film (Suboxone) cephalexin 500 mg capsule 500 mg PO TID #21 cap 05/24/20 clindamycin HCl 300 mg capsule 300 mg PO TID #21 cap 05/24/20 ibuprofen 800 mg tablet 800 mg PO TID PRN #30 tab 08/15/20 cephalexin 500 mg capsule 500 mg PO QID 7 Days #28 cap 09/24/20 Allergies Allergy/AdvReac Type Severity Reaction Status Date / Time Sulfa (Sulfonamide Allergy Unknown Verified 09/24/20 17:47 Antibiotics) [SULFA (SULFONAMIDE ANTIBIOTICS)] Review of Systems Review of Systems Narrative: As per HPI Patient History Medical History IVDU (intravenous drug user) Social History Smoking Status: Current every day smoker substance use type: heroin and IV drugs Smoking Status: Current every day smoker tobacco type: cigarettes alcohol intake frequency: holidays/special occasions only Substance Use Type: heroin and methamphetamine Exam Narrative Exam Narrative: Exam Narrative: Const General: cooperative, healthy appearing, comfortable, no acute distress, well developed and well groomed Nutritional Appearance: average body habitus Orientation: alert and oriented x3 HENMT Head: normal to inspection and atraumatic Ears: hearing grossly normal bilaterally Nose: external nose normal and nares normal Face and sinus: normal facial exam Neck Neck: normal visual inspection and supple Resp Effort & Inspection: normal respiratory effort, able to speak in complete sentences, no audible wheezes, not labored, no nasal flaring and no respiratory distress Neuro General: alert, oriented x3, gait normal, tone normal and moves all extremities Cognition: normal cognition Speech: speech normal Gait: normal gait Skin Small area of erythema on the medial distal lower extremity. Ultrasound was used which did not show any significant abscess. No proximal soft tissue tenderness. No subcutaneous crepitus noted. Psych Appearance: grossly normal and well kempt Mental Status: mental status grossly normal Speech and Movement: speech and movement normal Mood: congruent mood Affect: normal affect Initial Vital Signs Initial Vital Signs: Vital Signs Temperature 97.6 F 09/24/20 17:47 Pulse Rate 71 09/24/20 17:47 Respiratory Rate 18 09/24/20 17:47 Blood Pressure 133/88 09/24/20 17:47 Pulse Oximetry 100 09/24/20 17:47 Course Orders Ordered: Discontinued Medications Cephalexin HCl (Cephalexin 250 Mg Capsule) 500 mg PO NOW ONE Stop: 09/24/20 18:04 Vital Signs Vital signs: Vital Signs - 8 hr 09/24/20 17:47 Temperature 97.6 F Pulse Rate 71 Respiratory Rate 18 Blood Pressure 133/88 Pulse Oximetry 100 MDM - Skin/Abscess/Foreign Bdy MDM Narrative Medical decision making narrative: Differential diagnosis includes abscess, subcutaneous emphysema, necrotizing soft tissue infection. No systemic signs of illness at this time. Ultrasound was done which did not show any significant abscess formation. We will treat for cellulitis at this time with strict ER return precautions. Discharge Plan Departure Patient Disposition: Home Clinical Impression: Cellulitis Activity Restrictions/Additional Instructions: It was nice to meet you this afternoon. Please take the antibiotics as recommended for your skin infection. Encourage you to get clean as soon as you are ready. Do not hesitate return to the emergency department for any new or worsening symptoms. Thank you Anand KRAMER Prescriptions: New cephalexin 500 mg capsule 500 mg PO QID 7 Days Qty: 28 RF: 0 No Action quetiapine [Seroquel] 300 MG tablet 300 mg PO HS Qty: 0 RF: 0 cyclobenzaprine 10 mg tablet 10 mg PO TID Qty: 20 RF: 0 cyclobenzaprine 10 mg tablet 10 mg PO TID PRN (Reason: muscle spasm) Qty: 20 RF: 0 clindamycin HCl 300 mg capsule 300 mg PO TID Qty: 21 RF: 0 cephalexin 500 mg capsule 500 mg PO TID Qty: 21 RF: 0 buprenorphine-naloxone [Suboxone] 8-2 mg film 3 film buccal DAILY Qty: 9 RF: 0 ibuprofen 800 mg tablet 800 mg PO TID PRN (Reason: pain) Qty: 30 RF: 0 Referrals: Chely Jiménez ARNP [Primary Care Provider] -
[2020-09-24] MEDS: cephALEXin 250 MG CAPSULE 500 MG PO (18:17)
== END 2020-09-24 18:20 | disposition home or self-care (01) ==
PROVIDERS: Emergency Provider Physician Assistant; PCP Nurse Practitioner Family
DX: L03.115 Cellulitis of right lower limb (principal); F19.90 Other psychoactive substance use, unspecified, uncomplicated
CPT/HCPCS: 99283

== ENCOUNTER 2020-11-14 08:09 | Emergency (ER) | payer OTHER, MEDICAID, SELFPAY ==
[2020-11-14 08:16] VITALS: BP 109/66; PULSE 86; RESP 18; TEMP 36.4; O2SAT 100; BMI 23.7
--- NOTE | 2020-11-14 08:44 | ED_ITS ---
HPI - Skin/Abscess/Foreign Bdy General Chief complaint: Skin/Abscess/Foreign Body Stated complaint: abcess on right thigh Time Seen by Provider: 11/14/20 08:26 Mode of arrival: Ambulatory History of Present Illness HPI narrative: Patient is a 40-year-old male who uses heroin and methamphetamine. He injected into his right thigh about 1 week ago. He said increasing swelling and redness over the last 3 days. Denies fever or chills. He is allergic to sulfa but says doxycycline generally works pretty well for him currently not COVID vaccinated but is interested in getting 1 today. Related Data Home Medications Medication Instructions Recorded Confirmed quetiapine 300 mg tablet (Seroquel) 300 mg PO HS #0 tab 12/22/15 Previous Rx's Medication Instructions Recorded cyclobenzaprine 10 mg tablet 10 mg PO TID #20 tab 04/05/19 cyclobenzaprine 10 mg tablet 10 mg PO TID PRN #20 tab 04/05/19 buprenorphine 8 mg-naloxone 2 mg 3 film BUCCAL DAILY #9 ea 05/24/20 sublingual film (Suboxone) cephalexin 500 mg capsule 500 mg PO TID #21 cap 05/24/20 clindamycin HCl 300 mg capsule 300 mg PO TID #21 cap 05/24/20 ibuprofen 800 mg tablet 800 mg PO TID PRN #30 tab 08/15/20 doxycycline hyclate 100 mg capsule 100 mg PO BID #20 cap 11/14/20 ibuprofen 800 mg tablet 800 mg PO Q8H PRN #30 tab 11/14/20 Allergies Allergy/AdvReac Type Severity Reaction Status Date / Time Sulfa (Sulfonamide Allergy Unknown Verified 09/24/20 17:47 Antibiotics) [SULFA (SULFONAMIDE ANTIBIOTICS)] Patient History Medical History IVDU (intravenous drug user) Social History Smoking Status: Current every day smoker substance use type: heroin and IV drugs Smoking Status: Current every day smoker tobacco type: cigarettes alcohol intake frequency: holidays/special occasions only Substance Use Type: heroin and methamphetamine Exam Initial Vital Signs Initial Vital Signs: Vital Signs Temperature 97.5 F L 11/14/20 08:16 Pulse Rate 86 11/14/20 08:16 Respiratory Rate 18 11/14/20 08:16 Blood Pressure 109/66 11/14/20 08:16 Pulse Oximetry 100 11/14/20 08:16 GENERAL: Well-appearing, well-nourished and in no acute distress. CARDIOVASCULAR: peripheral pulses in tact, cap refill <2 sec RESPIRATORY: No respiratory distress, speaks in full sentences without difficulty EXTREMITIES: Normal range of motion, no clubbing or edema. Neurovascularly intact NEUROLOGICAL: Cranial nerves II through XII grossly intact. Normal gait and speech. SKIN: Right-sided anterior abscess 11 x 11 fluctuant erythematous no induration tender to touch Procedures Abscess I/D I&D #1: Site: lower extremity (Thigh) Side (if applicable): right Local Anesthetic: lidocaine 1% Amount of anesthesia used (mL): 8 Technique: incised with #11 blade Amount of fluid expressed (mL): 5 Irrigation: No Packing used?: iodoform Course Orders Ordered: ED Orders 11/14/20 10:05 Wound Culture and Gram Stain Stat Discontinued Medications COVID-19 Vacc Ad26-S Recombinant (JSN) (PF) (Covid-19 Vacc, Ad26(Fiona)/Pf 0.5 Ml) 0.5 ml IM .ONCE ONE Stop: 11/14/20 08:37 Last Admin: 11/14/20 09:00 Dose: 0.5 ml Documented by: WILMA Ibuprofen (Ibuprofen 400 Mg Tablet) 800 mg PO NOW ONE Stop: 11/14/20 09:17 Last Admin: 11/14/20 09:49 Dose: 800 mg Documented by: WILMA Lidocaine HCl (Lidocaine 1% 20 Ml) 10 ml INJ NOW ONE Stop: 11/14/20 08:37 Last Admin: 11/14/20 09:00 Dose: 10 ml Documented by: WILMA Vital Signs Vital signs: Vital Signs - 8 hr 11/14/20 08:16 Temperature 97.5 F L Pulse Rate 86 Respiratory Rate 18 Blood Pressure 109/66 Pulse Oximetry 100 MDM - Skin/Abscess/Foreign Bdy Lab Data Labs: Urine Dip Bedside Urine Glucose Negative Bedside Urine Bilirubin - Negative Bedside Urine Ketone - Negative Urine Specific [place] 1.02 Bedside Urine Occult Blood - Negative Bedside Urine pH 6.0 Bedside Urine Protein - Negative Bedside Urine Urobilinogen - Negative Bedside Urine Nitrite - Negative Bedside Urine Leukocytes - Negative Esterase MDM Narrative Medical decision making narrative: The patient has an obvious are right anterior thigh abscess which is drained and packed. He previously has done well with doxycycline is allergic to sulfa he is started on doxycycline. He is quite interested in his stopping his drug use. He is given a card for [facility], detox facility. Discussed with him about COVID vaccine. At this time he is very interested in getting a shot today. He is currently afebrile, no COVID signs or symptoms. I discussed with him warning signs and possible side effects. Discharge Plan Departure Patient Disposition: Home Clinical Impression: Abscess of skin or subcutaneous tissue Instructions: DI for Skin Abscess Activity Restrictions/Additional Instructions: *You have been diagnosed with abscess of right thigh *What to do: Packing can be removed in 48 hours it has not already fallen out by then. You have been given information for [facility] THANK YOU SO MUCH FOR GETTING HER COVID VACCINE TODAY. You can expect to have a sore arm for the next 48-72 hours. He may have fever chills and body aches. You can take Tylenol or Motrin for it. The symptoms should resolve spontaneously. Will be considered fully vaccinated in 2 weeks. Continue to wear mask take precautions *Continue to take medications as directed Doxycycline 100 mg twice a day for 10 days Motrin 800 mg every 8 hours if needed for pain *Follow up with your primary care provider in 2-3 days *Return to ER if you should have increasing redness pus swelling feveror any new, worsening or concerning symptoms Prescriptions: New ibuprofen 800 mg tablet 800 mg PO Q8H PRN (Reason: pain) Qty: 30 RF: 0 doxycycline hyclate 100 mg capsule 100 mg PO BID Qty: 20 RF: 0 No Action quetiapine [Seroquel] 300 MG tablet 300 mg PO HS Qty: 0 RF: 0 cyclobenzaprine 10 mg tablet 10 mg PO TID Qty: 20 RF: 0 cyclobenzaprine 10 mg tablet 10 mg PO TID PRN (Reason: muscle spasm) Qty: 20 RF: 0 clindamycin HCl 300 mg capsule 300 mg PO TID Qty: 21 RF: 0 cephalexin 500 mg capsule 500 mg PO TID Qty: 21 RF: 0 buprenorphine-naloxone [Suboxone] 8-2 mg film 3 film buccal DAILY Qty: 9 RF: 0 ibuprofen 800 mg tablet 800 mg PO TID PRN (Reason: pain) Qty: 30 RF: 0 Referrals: Chely Jiménez ARNP [Primary Care Provider] -
[2020-11-14] MEDS: LIDOCAINE 1% 20 ML 10 ML INJ (09:00)
[2020-11-14] MEDS: COVID-19 VACC, Ad26(JANSSEN)/PF 0.5 ML IM (09:00)
[2020-11-14] MEDS: IBUPROFEN 400 MG TABLET 800 MG PO (09:49)
[2020-11-14 10:01] VITALS: BP 118/75; PULSE 94; O2SAT 100
== END 2020-11-14 10:01 | disposition home or self-care (01) ==
PROVIDERS: Emergency Provider Emergency Medicine; PCP Nurse Practitioner Family
DX: L02.415 Cutaneous abscess of right lower limb (principal); Z23 Encounter for immunization
CPT/HCPCS: 0031A; 10060; 81003; 87070; 87205; 91303; 99283; 99284

== ENCOUNTER 2020-12-04 15:45 | Emergency (ER) | payer OTHER, MEDICAID, SELFPAY ==
[2020-12-04 15:52] VITALS: BP 120/70; PULSE 96; RESP 20; TEMP 36.6; O2SAT 100; BMI 23.3
--- NOTE | 2020-12-04 18:11 | ED_ITS ---
HPI - Skin/Abscess/Foreign Bdy <Anand Borges PA-C - Last Filed: 12/04/20 19:09> General Chief complaint: Skin/Abscess/Foreign Body Stated complaint: abscess on right thigh Time Seen by Provider: 12/04/20 17:52 Source: patient Mode of arrival: Ambulatory Limitations: no limitations History of Present Illness HPI narrative: Steven presents today with chief complaint of increased swelling to his right thigh. He reports that he has an abscess that has gotten substantially worse over the last 3 days. He reports significant pain to the area. He denies any fever, difficulty walking, or any other acute concerns or complaints. He admits to injection drug use primarily with heroin but states that he has not injected in his right thigh for the last week. MD complaint: abscess/boil Onset (ago): day(s) (3) Tetanus up to date: yes Location: RLE Severity: moderate Severity scale (1-10): 6 Quality: dull and constant Pain Consistency: constant Relieving factors: none Exacerbating factors: palpation and movement Context: IVDA (Heroin injector. Previous injection in to right thigh. As not inject in 1 week) Associated symptoms: denies other symptoms Related Data Home Medications Medication Instructions Recorded Confirmed quetiapine 300 mg tablet (Seroquel) 300 mg PO HS #0 tab 12/22/15 Previous Rx's Medication Instructions Recorded cyclobenzaprine 10 mg tablet 10 mg PO TID #20 tab 04/05/19 cyclobenzaprine 10 mg tablet 10 mg PO TID PRN #20 tab 04/05/19 buprenorphine 8 mg-naloxone 2 mg 3 film BUCCAL DAILY #9 ea 05/24/20 sublingual film (Suboxone) cephalexin 500 mg capsule 500 mg PO TID #21 cap 05/24/20 clindamycin HCl 300 mg capsule 300 mg PO TID #21 cap 05/24/20 ibuprofen 800 mg tablet 800 mg PO TID PRN #30 tab 08/15/20 doxycycline hyclate 100 mg capsule 100 mg PO BID #20 cap 11/14/20 ibuprofen 800 mg tablet 800 mg PO Q8H PRN #30 tab 11/14/20 doxycycline hyclate 100 mg tablet 100 mg PO BID 7 Days #14 tab 12/04/20 Allergies Allergy/AdvReac Type Severity Reaction Status Date / Time Sulfa (Sulfonamide Allergy Unknown Verified 09/24/20 17:47 Antibiotics) [SULFA (SULFONAMIDE ANTIBIOTICS)] Review of Systems <Anand Borges PA-C - Last Filed: 12/04/20 19:09> Review of Systems Narrative: As per HPI Patient History <Anand Borges PA-C - Last Filed: 12/04/20 19:09> Medical History IVDU (intravenous drug user) Social History Smoking Status: Current every day smoker substance use type: heroin and IV drugs Smoking Status: Current every day smoker tobacco type: vaping alcohol intake frequency: holidays/special occasions only Substance Use Type: heroin and methamphetamine Exam <Anand Borges PA-C - Last Filed: 12/04/20 19:09> Narrative Exam Narrative: Exam Narrative: Const General: cooperative, healthy appearing, comfortable, no acute distress, well developed and well groomed Nutritional Appearance: average body habitus Orientation: alert and oriented x3 HENMT Head: normal to inspection and atraumatic Ears: hearing grossly normal bilaterally Nose: external nose normal and nares normal Face and sinus: normal facial exam Neck Neck: normal visual inspection and supple Resp Effort & Inspection: normal respiratory effort, able to speak in complete sentences, no audible wheezes, not labored, no nasal flaring and no respiratory distress Neuro General: alert, oriented x3, gait normal, tone normal and moves all extremities Cognition: normal cognition Speech: speech normal Gait: normal gait Extremities Lower extremities exposed. Moderate-sized abscess to right anterior thigh with swelling, fluctuance, no overlying erythema. Very tender to the touch. Psych Appearance: grossly normal and well kempt Mental Status: mental status grossly normal Speech and Movement: speech and movement normal Mood: congruent mood Affect: normal affect Initial Vital Signs Initial Vital Signs: Vital Signs Temperature 98 F 12/04/20 15:52 Pulse Rate 96 H 12/04/20 15:52 Respiratory Rate 20 12/04/20 15:52 Blood Pressure 120/70 12/04/20 15:52 Pulse Oximetry 100 12/04/20 15:52 <Demond Haskins DO - Last Filed: 12/05/20 03:43> Initial Vital Signs Initial Vital Signs: Vital Signs Temperature 98 F 12/04/20 15:52 Pulse Rate 96 H 12/04/20 15:52 Respiratory Rate 20 12/04/20 15:52 Blood Pressure 120/70 12/04/20 15:52 Pulse Oximetry 100 12/04/20 15:52 Course <Anand Borges PA-C - Last Filed: 12/04/20 19:09> Course Course Narrative: I went in to anesthetize the patient and he said that he is having too much anxiety right now does not want an incision and drainage. He also needs to catch a Bartholomew. I tried to convince him but he was adamant that he would like to leave. We will do a trial of oral antibiotics at this time and patient is agreeable to this plan. Orders Ordered: Discontinued Medications Bupivacaine HCl/Epinephrine Bitart (Bupivacaine 0.5% W/ Epi (Pf) 30 Ml Vial) 5 ml SUBCUT NOW ONE Stop: 12/04/20 18:10 Doxycycline Hyclate (Doxycycline Hyclate 100 Mg Tablet) 100 mg PO NOW ONE Stop: 12/04/20 18:23 Last Admin: 12/04/20 18:47 Dose: 100 mg Documented by: MITCH Vital Signs Vital signs: Vital Signs - 8 hr 12/04/20 15:52 12/04/20 18:51 Temperature 98 F Pulse Rate 96 H 98 H Respiratory Rate 20 16 Blood Pressure 120/70 117/66 Pulse Oximetry 100 99 <Demond Haskins DO - Last Filed: 12/05/20 03:43> Orders Ordered: Discontinued Medications Bupivacaine HCl/Epinephrine Bitart (Bupivacaine 0.5% W/ Epi (Pf) 30 Ml Vial) 5 ml SUBCUT NOW ONE Stop: 12/04/20 18:10 Doxycycline Hyclate (Doxycycline Hyclate 100 Mg Tablet) 100 mg PO NOW ONE Stop: 12/04/20 18:23 Last Admin: 12/04/20 18:47 Dose: 100 mg Documented by: MITCH Vital Signs Vital signs: Vital Signs - 8 hr 12/04/20 15:52 12/04/20 18:51 Temperature 98 F Pulse Rate 96 H 98 H Respiratory Rate 20 16 Blood Pressure 120/70 117/66 Pulse Oximetry 100 99 Discharge Plan Departure Patient Disposition: Home Clinical Impression: Abscess Instructions: DI for Skin Abscess Activity Restrictions/Additional Instructions: It was very nice to meet you this evening. As discussed, draining this abscess is the best way to alleviate her symptoms. However, because you do not want to do this right now, please take the antibiotics as prescribed and please return if you change your mind about drainage. Thank you Anand Borges PA-C Prescriptions: New doxycycline hyclate 100 mg tablet 100 mg PO BID 7 Days Qty: 14 RF: 0 No Action quetiapine [Seroquel] 300 MG tablet 300 mg PO HS Qty: 0 RF: 0 cyclobenzaprine 10 mg tablet 10 mg PO TID Qty: 20 RF: 0 cyclobenzaprine 10 mg tablet 10 mg PO TID PRN (Reason: muscle spasm) Qty: 20 RF: 0 clindamycin HCl 300 mg capsule 300 mg PO TID Qty: 21 RF: 0 cephalexin 500 mg capsule 500 mg PO TID Qty: 21 RF: 0 buprenorphine-naloxone [Suboxone] 8-2 mg film 3 film buccal DAILY Qty: 9 RF: 0 ibuprofen 800 mg tablet 800 mg PO TID PRN (Reason: pain) Qty: 30 RF: 0 ibuprofen 800 mg tablet 800 mg PO Q8H PRN (Reason: pain) Qty: 30 RF: 0 doxycycline hyclate 100 mg capsule 100 mg PO BID Qty: 20 RF: 0 Referrals: Chely Jiménez ARNP [Primary Care Provider] - <Demond Haskins DO - Last Filed: 12/05/20 03:43> [facility]: I was immediately available in the department for consultation. This documentation has been reviewed and I agree with assessment and plan. Supervised by Demond Haskins DO
[2020-12-04] MEDS: DOXYCYCLINE HYCLATE 100 MG TABLET PO (18:47)
[2020-12-04 18:51] VITALS: BP 117/66; PULSE 98; RESP 16; O2SAT 99
== END 2020-12-04 18:52 | disposition home or self-care (01) ==
PROVIDERS: Emergency Provider Physician Assistant; PCP Nurse Practitioner Family
DX: L02.415 Cutaneous abscess of right lower limb (principal)
CPT/HCPCS: 99283

== ENCOUNTER 2020-12-10 20:26 | Inpatient (IN) | payer OTHER, MEDICAID, SELFPAY ==
[2020-12-10 20:31] VITALS: BP 138/85; PULSE 88; RESP 22; TEMP 36.6; O2SAT 99
--- NOTE | 2020-12-10 20:49 | ED_ITS ---
HPI - Skin/Abscess/Foreign Bdy General Chief complaint: Skin/Abscess/Foreign Body Stated complaint: abscess has opened up on leg Time Seen by Provider: 12/10/20 20:39 Source: patient Mode of arrival: Ambulatory History of Present Illness HPI narrative: Patient is a 40-year-old male. Admits to being a IV/IM drug abuser. Has been seen here recently for a infection in his right thigh. Was started on antibiotics. Return to the emergency department for continued and worsening redness and pain. No fevers. He states that there is a large area that is draining. Does appear to be improved from yesterday but worse from when he was seen here couple days ago. He is taking his antibiotics as directed. Related Data Home Medications Medication Instructions Recorded Confirmed quetiapine 300 mg tablet (Seroquel) 300 mg PO HS #0 tab 12/22/15 Previous Rx's Medication Instructions Recorded cyclobenzaprine 10 mg tablet 10 mg PO TID #20 tab 04/05/19 cyclobenzaprine 10 mg tablet 10 mg PO TID PRN #20 tab 04/05/19 buprenorphine 8 mg-naloxone 2 mg 3 film BUCCAL DAILY #9 ea 05/24/20 sublingual film (Suboxone) cephalexin 500 mg capsule 500 mg PO TID #21 cap 05/24/20 clindamycin HCl 300 mg capsule 300 mg PO TID #21 cap 05/24/20 ibuprofen 800 mg tablet 800 mg PO TID PRN #30 tab 08/15/20 doxycycline hyclate 100 mg capsule 100 mg PO BID #20 cap 11/14/20 ibuprofen 800 mg tablet 800 mg PO Q8H PRN #30 tab 11/14/20 doxycycline hyclate 100 mg tablet 100 mg PO BID 7 Days #14 tab 12/04/20 Allergies Allergy/AdvReac Type Severity Reaction Status Date / Time Sulfa (Sulfonamide Allergy Unknown Verified 09/24/20 17:47 Antibiotics) [SULFA (SULFONAMIDE ANTIBIOTICS)] Review of Systems Constitutional Constitutional: Denies fever(s) Gastrointestinal Gastrointestinal: Reports system reviewed and no additional complaints, except as documented Genitourinary Genitourinary: Reports system reviewed and no additional complaints, except as documented and Reports as per HPI Musculoskeletal Musculoskeletal: Reports system reviewed and no additional complaints, except as documented and Reports as per HPI Integumentary/Breasts Skin/Breast: Reports system reviewed and no additional complaints, except as documented and Reports as per HPI Neurologic Neurologic: Reports system reviewed and no additional complaints, except as documented Hematologic/Lymphatic On Anticoagulants: No Patient History Medical History IVDU (intravenous drug user) Social History Smoking Status: Current every day smoker substance use type: heroin and IV drugs Smoking Status: Current every day smoker tobacco type: vaping alcohol intake frequency: holidays/special occasions only Substance Use Type: heroin and methamphetamine Exam Initial Vital Signs Initial Vital Signs: Vital Signs Temperature 97.8 F 12/10/20 20:31 Pulse Rate 88 12/10/20 20:31 Respiratory Rate 22 12/10/20 20:31 Blood Pressure 138/85 12/10/20 20:31 Pulse Oximetry 99 12/10/20 20:31 HENMT Head: normal to inspection and normocephalic Resp Effort & Inspection: normal respiratory effort Cardio Rate: regular rate GI Inspection: normal to inspection Palpation: soft and No tender Skin Other: Area of focus is right anterior thigh. There is a 3 x 5 cm area of ulceration with purulent material coming from the area. Surrounding this there is a large area that almost encompasses his entire anterior thigh of redness and induration that is warm and tender to the touch. Neuro General: patient alert, patient awake, patient oriented x3 and moves all extremities Speech: speech normal Extrem Other: Patient is able to flex and extend his right hip and right knee however does have some discomfort but all this discomfort is localized to his right anterior thigh. Course Orders Ordered: ED Orders 12/10/20 20:45 Wound Culture and Gram Stain Stat 12/10/20 20:49 CT LE RT w con Stat Blood Culture Stat 12/10/20 21:10 Basic Metabolic Panel Stat Complete Blood Count AUTO DIFF Stat Lactate (Lactic Acid) Stat 12/10/20 23:07 Consult to Orthopedic Surgery Stat 12/10/20 23:13 COVID19 - ADMIT (SYSTEMS OPERATOR swab/PCR) Stat Acetaminophen (Acetaminophen 325 Mg Tablet) 650 mg PO Q6HR PRN PRN Reason: Fever/Mild Pain (1-3) Heparin Sodium (Porcine) (Heparin 5,000 Unit/Ml Vial) 5,000 unit SUBCUT BID RENEE Sodium Chloride (Normal Saline 0.45%) 1,000 mls @ 100 mls/hr IV CONT RENEE Methadone HCl (Methadone 5 Mg Tablet) 5 mg PO DAILY RENEE Naloxone HCl (Naloxone 0.4 Mg/Ml Vial) 0.2 mg IV Q2MIN PRN PRN Reason: Opiate Reversal Discontinued Medications Vancomycin HCl (Vancomycin) 1,000 mg in 200 mls @ 200 mls/hr IV NOW ONE Stop: 12/10/20 21:48 Last Infusion: 12/10/20 23:19 Dose: 0 mls/hr Documented by: Admin: 12/10/20 22:08 Dose: 200 mls/hr Documented by: GLORIA Ceftriaxone Sodium 1,000 mg/ (Sodium Chloride) 100 mls @ 200 mls/hr IV NOW ONE Stop: 12/10/20 20:50 Last Infusion: 12/10/20 22:09 Dose: 0 mls/hr Documented by: Admin: 12/10/20 21:27 Dose: 200 mls/hr Documented by: GLORIA Vancomycin HCl (Vancomycin Per Pharmacy) 1 request MISC NOW ONE Stop: 12/11/20 00:17 Vital Signs Vital signs: Vital Signs - 8 hr 12/10/20 20:31 Temperature 97.8 F Pulse Rate 88 Respiratory Rate 22 Blood Pressure 138/85 Pulse Oximetry 99 MDM - Skin/Abscess/Foreign Bdy Medical Records Attestation: I reviewed the patient's medical records. Lab Data Attestation: I reviewed the patient's lab results. Result diagrams: 12/10/20 21:10 12/10/20 21:10 Labs: Lab Results 12/10/20 12/10/20 12/10/20 Range/Units 21:10 21:10 21:10 WBC 6.8 (4.5-11.0) X10^3/uL RBC 3.94 L (4.5-5.9) X10^6/uL Hgb 11.4 L (13.5-17.5) g/dL Hct 33.9 L (41-53) % MCV 86.1 (80-100) fL MCH 29.1 (26-34) PG MCHC 33.7 (30-36) % RDW 13.4 (11.6-14.8) % Plt Count 437 H (150-400) X10^3/uL Neut % (Auto) 56.1 (50-75) % Lymph % (Auto) 29.0 (25-40) % [place] % (Auto) 10.3 (3-14) % Eos % (Auto) 3.7 (2-4) % Baso % (Auto) 0.9 (0-2) % Neut # (Auto) 3800 (2649-0540) /uL Lymph # (Auto) 2000 (2294-8595) /uL [place] # (Auto) 700 (0-900) /uL Eos # (Auto) 200 (0-450) /uL Baso # (Auto) 100 (0-100) /uL Sodium 139 (137-145) mmol/L Potassium 4.5 (3.4-5.1) mmol/L Chloride 104 (98-107) mmol/L Carbon Dioxide 30 (22-32) mmol/L BUN 17 (9-20) mg/dL Creatinine 0.93 (0.66-1.25) mg/dL Estimated GFR > 60.0 (>60) mL/min BUN/Creatinine Ratio 18.3 (6-22) Glucose 104 H (70-100) mg/dL Lactate 1.0 (0.7-2.1) mmol/L Calcium 9.1 (8.4-10.2) mg/dL Imaging Data CT LE: Radiologist's Impression: [address] Scan ReportSigned Patient: Steven Rodarte PMR#: [id number]: 1980Acct:[id number]/Sex: 40 / MDate of Service: 12/10/20Loc: EDAccession Number: [id number] Procedure: CT LE RT w con Ordering Provider: Juan Moran D.O. PROCEDURE: CT LE RT W CON INDICATIONS: R thigh cellulitis eval for abscess TECHNIQUE: After the administration of intravenous contrast, 3 mm axial sections acquired of the right femur , with coronal and sagittal reformats. COMPARISON: None. FINDINGS: Image quality: Excellent. Bones: No bony erosions or periosteal reaction identified. No fractures or dislocation. Soft tissues: There is a soft tissue ulcer anteriorly within the right thigh with associated underlying subcutaneous fat stranding and fluid. There is also a subjacent thick-walled loculated subcutaneous fluid collection deep to the ulcer measuring up to approximately 3.9 x 1.2 x 12.5 cm containing a small amount of fluid. Findings are compatible with an abscess. This tracks superficially along the anterior compartment musculature of the right thigh. No knee joint effusion. IMPRESSION: 1. Loculated thick-walled subcutaneous fluid collection demonstrated deep to the cutaneous ulcer in the anterior right thigh consistent with an abscess. This tracks superficially along the musculature within the anterior compartment with associated myositis not excluded. 2. No CT evidence of osteomyelitis. Dictated by: Ishan Cowart M.D. on 12/10/2020 at 22:38 Approved by: Ishan Cowart M.D. on 12/10/2020 at 22:44 [facility] Narrative Medical decision making narrative: Patient does have a large area of cellulitis and induration to his right thigh. He is not septic. Is nontoxic appearing. Is not tachycardic. Not febrile. Does not have a leukocytosis. The area is draining spontaneously however the CT scan does show a large area of a loculated abscess in his right thigh. I feel that it is too large in order for me to drain under local anesthesia. I did discuss the case with Dr. Thayer on-call for Orthopedics. She will come and see the patient tomorrow about having a washout of the area. Discussed the case with Dr. Enrique with Internal Medicine who will admit for further evaluation and treatment. I did discuss the need for the admission with the patient. He expressed understanding. Was given antibiotics here in the emergency department. Discharge Plan Departure Patient Disposition: Admitted as Observation Clinical Impression: Cellulitis, Abscess Admit Date/Time: 12/10/20 23:23 Admit Provider: Jose Enrique
[2020-12-10] MEDS: cefTRIAXone 1,000 MG in SODIUM CHLORIDE 0.9% 100 ML 200 ML IV (21:27)
[2020-12-10 21:36] LABS: BUN Creatinine Ratio 18.3 (6-22); Blood Urea Nitrogen 17 mg/dL (9-20); Calcium 9.1 mg/dL (8.4-10.2); Carbon Dioxide 30 mmol/L (22-32); Chloride 104 mmol/L (98-107); Estimated Glomerular Filt Rate > 60.0 mL/min (>60); Glucose 104 mg/dL (70-100); Potassium 4.5 mmol/L (3.4-5.1); Sodium 139 mmol/L (137-145)
[2020-12-10 21:38] LABS: HEMOLYSIS 79 (0-50)
[2020-12-10 21:51] LABS: Add Manual Diff / Slide Review NO; Basophils Absolute Auto 100 /uL (0-100); Basophils Percent Auto 0.9 % (0-2); Eosinophils Absolute Auto 200 /uL (0-450); Eosinophils Percent Auto 3.7 % (2-4); Hematocrit 33.9 % (41-53); Hemoglobin 11.4 g/dL (13.5-17.5); Lymphocytes Absolute Auto 2000 /uL (1100-4500); Mean Corpuscular HGB Conc 33.7 % (30-36); Mean Corpuscular Hemoglobin 29.1 PG (26-34); Mean Corpuscular Volume 86.1 fL (80-100); Monocytes Absolute Auto 700 /uL (0-900); Monocytes Percent Auto 10.3 % (3-14); Neutrophils Absolute Auto 3800 /uL (1500-7000); Neutrophils Percent Auto 56.1 % (50-75); Platelet Count 437 X10^3/uL (150-400); Red Blood Cell Count 3.94 X10^6/uL (4.5-5.9); Red Cell Distribution Width 13.4 % (11.6-14.8); White Blood Cell Count 6.8 X10^3/uL (4.5-11.0)
[2020-12-10] MEDS: VANCOMYCIN 1,000 MG/200 ML PIGGYBACK 200 MG IV (22:08)
--- NOTE | 2020-12-10 23:46 | PM.HP.1 ---
History of Present Illness History of Present Illness Date Patient Seen: 12/10/20 Time Patient Seen: 23:40 Chief complaint: abscess has opened up on leg Narrative: Mr. Rodarte is a 40M with H IVDU, smoker, untreated Hep C who presents with purulence draining from a known R thigh abscess and worsening pain. He has been to the ED multiple times in the past few weeks for this issue. He does inject heroin and had been injecting into his right thigh, though he says he has not injected there for a few weeks. He uses heroin and meth, sometimes injects now into the left leg, but has also been smoking more recently. He came to the ED on 11/14 with swelling and redness on the right leg. He was diagnosed with an abscess, had it drained and was prescribed antibiotics. He presented again on 12/04 as a few days prior to this he noted the swelling in his thigh became worse. He was recommended to have drainage but he left against medical advice. He comes back in because the thigh is draining pus and he notes swelling and pain in his right groin. He has no fevers/chills. He has been taking his doxycycline at home with no missed doses. In the ED workup was done, vitals showed no fever, tachycardia, and a normal blood pressure. WBC 6.8, creatinin 0.93, lactate 1.0. CT showed a subcutaneous fat stranding and fluid and underneath a loculated subcutaneous fluid collection 3.9x1.2x12.5cm. He was given IV antibiotics. Orthopedic surgery was consulted. He was admitted for further treatment. Family History: patient denied that his mother and father had any medical conditions, and he knows of no other family with medical issues Patient History Medical History IVDU (intravenous drug user) Family & Social History Tobacco & Substance use: Smoking Status Current every day smoker alcohol intake frequency holiday/special occasion Substance Use Type heroin,methamphetamine Meds Home Medications and Allergies Home Medications Medication Instructions Recorded Confirmed Type quetiapine 300 mg tablet (Seroquel) 300 mg PO HS #0 tab 12/22/15 History cyclobenzaprine 10 mg tablet 10 mg PO TID #20 tab 04/05/19 Rx cyclobenzaprine 10 mg tablet 10 mg PO TID PRN #20 tab 04/05/19 Rx buprenorphine 8 mg-naloxone 2 mg 3 film BUCCAL DAILY #9 ea 05/24/20 Rx sublingual film (Suboxone) cephalexin 500 mg capsule 500 mg PO TID #21 cap 05/24/20 Rx clindamycin HCl 300 mg capsule 300 mg PO TID #21 cap 05/24/20 Rx ibuprofen 800 mg tablet 800 mg PO TID PRN #30 tab 08/15/20 Rx doxycycline hyclate 100 mg capsule 100 mg PO BID #20 cap 11/14/20 Rx ibuprofen 800 mg tablet 800 mg PO Q8H PRN #30 tab 11/14/20 Rx doxycycline hyclate 100 mg tablet 100 mg PO BID 7 Days #14 tab 12/04/20 Rx Allergies Allergy/AdvReac Type Severity Reaction Status Date / Time Sulfa (Sulfonamide Allergy Unknown Verified 09/24/20 17:47 Antibiotics) [SULFA (SULFONAMIDE ANTIBIOTICS)] Review of Systems Review of Systems Narrative: 14 systems reviewed and negative aside from what is noted in HPI Exam Vital Signs (past 8 hours): - 12/10/20 20:31 Temperature 97.8 F Pulse Rate 88 Respiratory Rate 22 Blood Pressure 138/85 Pulse Oximetry 99 Oxygen Delivery Method Room Air Narrative Exam Narrative: GEN: no acute distress HEENT: PERRL, moist mucous membranes NECK: trachea midline, no JVD PULM: clear bilaterally CV: regular rate and rhythm, with no murmurs ABD: soft, nontender, nondistended, no organomegaly, normal bowel sounds EXT: normal range of motion of right hip and knee SKIN: most of the entirety of anterior right thigh is swollen, erythematous and tender to touch, there multiple ulcers overlying with purulence oozing from the ulcer, fluctuance noted on palpation NEURO: moving all extremities, no focal deficits noted PSYCH: pleasant, cooperative Objective Labs Result Diagrams: 12/10/20 21:10 12/10/20 21:10 Labs: Laboratory Results - last 24 hr 12/10/20 12/10/20 12/10/20 21:10 21:10 21:10 WBC 6.8 RBC 3.94 L Hgb 11.4 L Hct 33.9 L MCV 86.1 MCH 29.1 MCHC 33.7 RDW 13.4 Plt Count 437 H Neut % (Auto) 56.1 Lymph % (Auto) 29.0 [place] % (Auto) 10.3 Eos % (Auto) 3.7 Baso % (Auto) 0.9 Neut # (Auto) 3800 Lymph # (Auto) 2000 [place] # (Auto) 700 Eos # (Auto) 200 Baso # (Auto) 100 Sodium 139 Potassium 4.5 Chloride 104 Carbon Dioxide 30 BUN 17 Creatinine 0.93 Estimated GFR > 60.0 BUN/Creatinine Ratio 18.3 Glucose 104 H Lactate 1.0 Calcium 9.1 Assessment & Plan Assessment & Plan narrative: Mr. Rodarte is a 40M active substance abuse (heroin, meth) who presents leg pain found to have R leg cellulitis and abscess. 1. R thigh cellulitis with underlying abscess -initially diagnosed with abscess nearly a month ago in early november -has been on multiple oral antibiotics, failed outpatient treatment -CT shows loculated fluid collection, likely previous drainage has been incomplete -previous cultures showed strep viridans -for now will keep on IV vanco -orthopedic surgery consulted -patient NPO after midnight for possible washout of abscess 2. Active substance abuse with heroin/methamphetatmines -on admission patient not in withdrawal, last used earlier today -has been on suboxone previously, but not currently as he is using heroin daily -he is interested in quitting -SW consult placed -methadone ordered in hospital for pain and to avoid withdrawals 3. Hepatitis C untreated -would recommend follow up with PCP to treat Hep C 4. Anemia, mild -possibly secondary to illness (hep c, infection) -no need for transfusion, monitor for now DVT ppx: heparin sc CODE: Full Proxy: patient declines to have a proxy on file in case he is unable to make medical decisions Dispo: inpatient, patient's severity of abscess will likely require surgical intervention and IV antibiotics, expect greater than 2 midnights in the hospital I have utilized all available immediate resources to obtain, update, or review the patient's current medications. Time Spent With Patient Critical Care time: I spent a total of [] minutes of critical care time on this patient's care today; this time is exclusive of procedural time. Quality MIPS - Admit I confirm the patient?s Advance Care Plan is present, Code status is documented, Surrogate decision maker is in patient?s record [If Yes, STOP here]: Yes The patient?s Advance Care plan is not present because I confirmed today that the patient does not wish or was not able to name a surrogate decision maker or provide an Advance Care Plan.: Yes
[2020-12-11] VITALS (18 sets, daily range): BP systolic 101–129; BP diastolic 60–89; PULSE 58–100; RESP 16–24; TEMP 36.3–36.6; O2SAT 96–100; BMI 23.3
[2020-12-11 01:11] LABS: COVID19 - ADMIT (NP swab/PCR) Negative (Negative)
[2020-12-11] MEDS: SODIUM CHLORIDE 0.45% 1,000 ML 100 ML IV ×2 (01:16→12:12)
[2020-12-11] MEDS: ACETAMINOPHEN 325 MG TABLET 650 MG PO ×2 (01:26→22:01)
[2020-12-11] MEDS: VANCOMYCIN 1,000 MG/200 ML PIGGYBACK 200 MG IV (01:28)
--- NOTE | 2020-12-11 03:18 | PC.NURSE ---
Pertaining to med rec, patient states he does not take any medications at home.
--- NOTE | 2020-12-11 07:38 | P.PN_ITS ---
Subjective Subjective Date Patient Seen: 12/11/20 Time Patient Seen: 07:38 Interval history: The patient is complaining of [id number] right thigh pain this morning. He is on IV antibiotics including Ancef and vancomycin for his right thigh abscess. He is currently NPO for a potential washout this afternoon. He denies fevers, chills, night sweats. He is concerned that he will be withdrawing in the next few hours. He is hopeful that this hospital course can help him get back on Suboxone and off of his drugs. H/o IV/IM drug user including heroin and meth. He has been seen most recently in the ER on 11/14/2020 for his right thigh abscess. He has been using doxycycline at home. He also has a history of untreated hep C. Exam Vital Signs (past 8 hours): - 12/11/20 00:59 12/11/20 05:00 Temperature 97.9 F 97.5 F L Pulse Rate 69 58 L Respiratory Rate 18 18 Blood Pressure 124/77 126/78 Pulse Oximetry 97 96 Oxygen Delivery Method Room Air Narrative Exam Narrative: Right thigh a 3 x 5 cm area of ulceration with had drainage pus, bloody. The majority of his right thigh has erythema and induration and is tender to palpation. There is an area of fluctuance noted near the ulceration. Bilateral lower extremity motor functions are intact. Distally he is intact to light touch in bilateral lower extremities. Objective Labs Result Diagrams: 12/10/20 21:10 12/10/20 21:10 Labs: Laboratory Results - last 24 hr 12/10/20 12/10/20 12/10/20 21:10 21:10 21:10 WBC 6.8 RBC 3.94 L Hgb 11.4 L Hct 33.9 L MCV 86.1 MCH 29.1 MCHC 33.7 RDW 13.4 Plt Count 437 H Neut % (Auto) 56.1 Lymph % (Auto) 29.0 [place] % (Auto) 10.3 Eos % (Auto) 3.7 Baso % (Auto) 0.9 Neut # (Auto) 3800 Lymph # (Auto) 2000 [place] # (Auto) 700 Eos # (Auto) 200 Baso # (Auto) 100 Sodium 139 Potassium 4.5 Chloride 104 Carbon Dioxide 30 BUN 17 Creatinine 0.93 Estimated GFR > 60.0 BUN/Creatinine Ratio 18.3 Glucose 104 H Lactate 1.0 Calcium 9.1 SARS-CoV-2 (PCR) 12/10/20 23:13 WBC RBC Hgb Hct MCV MCH MCHC RDW Plt Count Neut % (Auto) Lymph % (Auto) [place] % (Auto) Eos % (Auto) Baso % (Auto) Neut # (Auto) Lymph # (Auto) [place] # (Auto) Eos # (Auto) Baso # (Auto) Sodium Potassium Chloride Carbon Dioxide BUN Creatinine Estimated GFR BUN/Creatinine Ratio Glucose Lactate Calcium SARS-CoV-2 (PCR) Negative [facility] Medical History IVDU (intravenous drug user) Social History household members: significant other Smoking Status: Current every day smoker alcohol intake: former substance use type: heroin and IV drugs Assessment & Plan Assessment & Plan narrative: -need to discuss his case with Dr. Thayer. Possible surgical washout today -remain NPO today -continue with IV antibiotics including Ancef and vancomycin -medicine to manage patient's withdrawals Time Spent With Patient Critical Care time: I spent a total of [] minutes of critical care time on this patient's care today; this time is exclusive of procedural time. Quality VTE Deep Vein Thrombosis/Pulmonary Embolism Present on Admission: Yes
[2020-12-11] MEDS: METHADONE 5 MG TABLET PO (08:03)
[2020-12-11] MEDS: NICOTINE 14 PATCH 14 MG TOP (08:04)
[2020-12-11] MEDS: HEPARIN 5,000 UNIT/ML VIAL 5000 UNIT SUBCUT (08:04)
[2020-12-11] MEDS: VANCOMYCIN 1,250 MG/250 ML PIGGYBACK 250 MG IV ×2 (09:57→18:31)
--- NOTE | 2020-12-11 15:32 | P.CONS_ITS ---
History of Present Illness Consult details Date Patient Seen: 12/11/20 Time Patient Seen: 15:30 Chief complaint: abscess has opened up on leg Reason for consult: thigh abcess right Requesting provider: Bambi Escudero Narrative: This is a 40-year-old gentleman with a history of intervening is drug abuse with heroin who came to the emergency room with a right thigh abscess. He was admitted to Medicine and Orthopedic consultation was obtained for evaluation of a thigh abscess and cellulitis. He does note that he does shoot up in this area. Meds Home Medications and Allergies Home Medications Medication Instructions Recorded Confirmed Type No Known Home Medications 12/11/20 12/11/20 History Allergies Allergy/AdvReac Type Severity Reaction Status Date / Time Sulfa (Sulfonamide Allergy Unknown Verified 09/24/20 17:47 Antibiotics) [SULFA (SULFONAMIDE ANTIBIOTICS)] Review of Systems Review of Systems Narrative: Does not note specific fevers or chills recently, notes thigh pain but denies hip or knee pain, history of multiple abscesses in the past Exam Vital Signs (past 8 hours): - 12/11/20 13:00 Temperature 97.8 F Pulse Rate 64 Respiratory Rate 18 Blood Pressure 128/74 Pulse Oximetry 97 Oxygen Delivery Method Room Air Narrative Exam Narrative: Resting comfortably in bed HEENT is benign, neck is supple, lungs are clear cor regular rate and rhythm, abdomen benign, right thigh obvious subcutaneous abscess with multiple puncture wounds and multiple areas of necrotic tissue, moderate cellulitis with fluctuance, no pain with gentle range of motion the hip, no pain with gentle range of motion in the knee, bigg rologically intact distally Objective Labs Result Diagrams: 12/10/20 21:10 12/10/20 21:10 Labs: Laboratory Results - last 24 hr 12/10/20 12/10/20 12/10/20 21:10 21:10 21:10 WBC 6.8 RBC 3.94 L Hgb 11.4 L Hct 33.9 L MCV 86.1 MCH 29.1 MCHC 33.7 RDW 13.4 Plt Count 437 H Neut % (Auto) 56.1 Lymph % (Auto) 29.0 [place] % (Auto) 10.3 Eos % (Auto) 3.7 Baso % (Auto) 0.9 Neut # (Auto) 3800 Lymph # (Auto) 2000 [place] # (Auto) 700 Eos # (Auto) 200 Baso # (Auto) 100 Sodium 139 Potassium 4.5 Chloride 104 Carbon Dioxide 30 BUN 17 Creatinine 0.93 Estimated GFR > 60.0 BUN/Creatinine Ratio 18.3 Glucose 104 H Lactate 1.0 Calcium 9.1 SARS-CoV-2 (PCR) 12/10/20 23:13 WBC RBC Hgb Hct MCV MCH MCHC RDW Plt Count Neut % (Auto) Lymph % (Auto) [place] % (Auto) Eos % (Auto) Baso % (Auto) Neut # (Auto) Lymph # (Auto) [place] # (Auto) Eos # (Auto) Baso # (Auto) Sodium Potassium Chloride Carbon Dioxide BUN Creatinine Estimated GFR BUN/Creatinine Ratio Glucose Lactate Calcium SARS-CoV-2 (PCR) Negative MRI scan of the right thigh shows a right thigh abscess [facility] Medical History Hepatitis C IVDU (intravenous drug user) Social History household members: significant other Tobacco & Substance Use Smoking Status: Current every day smoker alcohol intake: former substance use type: heroin and IV drugs Assessment & Plan Assessment & Plan narrative: Right thigh abscess in in her venous drug abuser. I have recommended irrigation and debridement drainage of his abscess and then the plan will be to pack it open. He will then need to undergo dressing changes. H of the procedure options risks benefits and complications discussed in detail. He understands and agrees. Time Spent With Patient Critical Care time: I spent a total of [] minutes of critical care time on this patient's care today; this time is exclusive of procedural time.
--- NOTE | 2020-12-11 15:36 | PM.OP.1 ---
Operative Date/Time/Diagnoses Date of procedure: 12/11/20 Time of procedure: 16:00 Pre-op diagnosis: Right thigh abscess Post-op diagnosis: same Procedure & Clinicians Procedure: Right thigh abscess irrigation and debridement with excisional debridement of necrotic and infected subcutaneous tissue and some muscle Same procedure as scheduled: Yes Indications: This is interviewed his drug abuser with a history of a right thigh abscess is brought the operating room for irrigation and debridement. Surgeon: Destiny Thayer Anesthesia Type: General Operative Notes Findings: Necrotic tissue with some necrotic muscle, deep abscess. Closure Type: not applicable (Packed with a moist dressing.) Specimen(s): other (Deep cultures) Estimated Blood Loss (mL): 50 Blood products transfused: none Procedure in detail: Patient is brought the operating room he underwent induction of a general anesthesia. His right lower extremities prepped hip standard sterile step fashion. A time-out was performed. He was on preoperative IV antibiotics. Patient had cellulitis and necrotic tissue on the anterior aspect of his thigh with multiple puncture wounds about a 5-6 cm wound on the anterior thigh. An approximately 8 cm incision was made. Patient's previous necrotic wound was meticulously debrided it was extended slightly proximally and distally. There was gross pus encountered and a culture and sensitivity was sent. The wound was meticulously irrigated with saline. There was a break into the fascia and muscle a small amount of necrotic muscle was debrided. Necrotic skin and subcutaneous tissues were excised removing some necrotic muscle and some subcutaneous tissue and necrotic skin. Dissection was carried out down to the level fascia. Portion of necrotic muscle was debrided and a deep abscess was drained. It did not track substantially into the muscle. The wound is meticulously irrigated with normal saline. The wound was packed with a moist dressing. And the wound was dressed sterilely. Complications: none Post-operative Condition: stable Disposition: Acute Care Plan for aftercare: Dressing changes. Okay to be seen in the wound clinic.
--- NOTE | 2020-12-11 16:19 | SUR.OPER ---
Supine on padded OR bed, head on pillow, arms secured on padded arm boards at <90 degrees abduction, legs uncrossed, safety belt at abdomen, tape over blanket over left lower leg, right leg prepped in sterile field.
--- NOTE | 2020-12-11 16:26 | SUR.OPER ---
dentures and underwear sent to PACU with patient
--- NOTE | 2020-12-11 16:42 | PM.PN.1 ---
Subjective Subjective Date Patient Seen: 12/11/20 Interval history: The patient is a 40-year-old male with a history of polysubstance abuse including IV drug use to the hospital for a right thigh abscess related to injection into the right thigh. Patient continues to have significant pain. He feels that he is withdrawing from opiates at this time. He ideally would like to go on Suboxone as an outpatient however is willing to take methadone in the hospital understanding that this Suboxone will interfere with pain control. Exam Vital Signs (past 8 hours): - 12/11/20 13:00 Temperature 97.8 F Pulse Rate 64 Respiratory Rate 18 Blood Pressure 128/74 Pulse Oximetry 97 Oxygen Delivery Method Room Air Narrative Exam Narrative: Ill-appearing male Resp Other: Lungs clear to auscultation Cardio Other: Cardiac exam regular rate and rhythm normal S1-S2 GI Other: Abdomen soft nontender Skin Other: Directed exam, right thigh with an enlarged area 3 x 12 with necrotic looking tissue anteriorly. Minimal erythema. There is no drainage. The area is exquisitely painful Objective Labs Result Diagrams: 12/10/20 21:10 12/10/20 21:10 Labs: Laboratory Results - last 24 hr 12/10/20 12/10/20 12/10/20 21:10 21:10 21:10 WBC 6.8 RBC 3.94 L Hgb 11.4 L Hct 33.9 L MCV 86.1 MCH 29.1 MCHC 33.7 RDW 13.4 Plt Count 437 H Neut % (Auto) 56.1 Lymph % (Auto) 29.0 [place] % (Auto) 10.3 Eos % (Auto) 3.7 Baso % (Auto) 0.9 Neut # (Auto) 3800 Lymph # (Auto) 2000 [place] # (Auto) 700 Eos # (Auto) 200 Baso # (Auto) 100 Sodium 139 Potassium 4.5 Chloride 104 Carbon Dioxide 30 BUN 17 Creatinine 0.93 Estimated GFR > 60.0 BUN/Creatinine Ratio 18.3 Glucose 104 H Lactate 1.0 Calcium 9.1 SARS-CoV-2 (PCR) 12/10/20 23:13 WBC RBC Hgb Hct MCV MCH MCHC RDW Plt Count Neut % (Auto) Lymph % (Auto) [place] % (Auto) Eos % (Auto) Baso % (Auto) Neut # (Auto) Lymph # (Auto) [place] # (Auto) Eos # (Auto) Baso # (Auto) Sodium Potassium Chloride Carbon Dioxide BUN Creatinine Estimated GFR BUN/Creatinine Ratio Glucose Lactate Calcium SARS-CoV-2 (PCR) Negative [facility] Medical History Hepatitis C IVDU (intravenous drug user) Social History household members: significant other Smoking Status: Current every day smoker alcohol intake: former substance use type: heroin and IV drugs Assessment & Plan Assessment & Plan narrative: 1. Right thigh cellulitis and right thigh abscess -patient is status post I&D -cultures and sensitivity sent from the operating room -continue current antibiotics -will adjust antibiotics based on wound culture results 2. Opioid dependence -patient ultimately would like to get on Suboxone -will continue methadone at this time -as he currently feels he is withdrawing will increase methadone to 30 mg daily -social work consult -patient indicates he would like outpatient treatment 3. Hep C -would refer for outpatient treatment 4. Anemia Await culture and sensitivity, narrow antibiotics, anticipate patient will be able to discharge home in 1-2 days Time Spent With Patient Critical Care time: I spent a total of [] minutes of critical care time on this patient's care today; this time is exclusive of procedural time. Quality VTE Deep Vein Thrombosis/Pulmonary Embolism Present on Admission: Yes
[2020-12-11] MEDS: HYDROMORPHONE 2 MG INJ IV ×4 (16:54→17:13)
[2020-12-11] MEDS: LORazepam 2 MG/ML INJ 0.5 MG IV (17:15)
--- NOTE | 2020-12-11 17:25 | SUR.PHASEI ---
1715 Received pt in OR from OR crew and recovered in OR due to MRSA infection in leg from skin pooping drug use. Crying in pain. After Dilaudid 2 mg IV over 4 doses with no pain relief, given ativan 0.5 mg IV.
[2020-12-11] MEDS: LACTATED RINGERS 1,000 ML 125 ML IV (18:31)
[2020-12-11] MEDS: METHADONE 10 MG TABLET PO (22:28)
[2020-12-12 00:54] VITALS: BP 116/63; PULSE 73; RESP 16; TEMP 36.4
[2020-12-12] MEDS: METHADONE 10 MG TABLET 5 MG PO (01:04)
[2020-12-12] MEDS: VANCOMYCIN 1,250 MG/250 ML PIGGYBACK 250 MG IV (01:57)
[2020-12-12 04:54] VITALS: BP 131/79; PULSE 58; RESP 16; TEMP 36.6; O2SAT 99
[2020-12-12] MEDS: ACETAMINOPHEN 325 MG TABLET 650 MG PO (05:38)
--- NOTE | 2020-12-12 07:19 | PC.NURSE ---
Pt refusing morning lab draw, provider aware. Lab unable to draw blood 12/11 as well.
--- NOTE | 2020-12-12 08:43 | CM.IDA ---
Addendum entered by NATHEN Cole 12/12/20 12:20: ADD: Patient DCd on oral abx this morning. Patient denies needs from this HISTORICAL GUIDE. Home w/friend via private auto JOHANA Original Note: Initial DCP Assessment Note Late Entry Pt is a 40 yo male, resident address is [facility], presents with right thigh cellulitis and right thigh abscess, secondary to IV/IM DU PCP: Chely Jiménez Payer: [facility] Reviewed chart, pt discussed in multidisciplinary rounds this morning. Patient scheduled for I+D/wash out of the wound, cultures will be sent Met w/patient and his friend Lennie yesterday 12.11.20, introduced role. Patient is not forthcoming w/information during this visit, appears uncomfortable. Contact information left on white board, explained this HISTORICAL GUIDE will be available to patient for coordination of safest DCP available to patient; as medical POC unfolds NATHEN Phan Discharge Planning/Care Management CM Discharge Assessment Start: 12/12/20 08:39 Freq: Status: Active Protocol: Document 12/12/20 08:39 JOHANA (Rec: 12/12/20 08:43 JOHANA [id number]) Discharge Planning Assessment Assigned Tractor Driver Teamster NATHEN Lazo DPOA/Assigned Designee Name father Mejia Contact Information [phone] Advance Directives? No Advance Directives on File No History Provided By Patient Prior Living Arrangements House Household Members significant other Type of transportation used prior to Drives own vehicle admit Independent with ADL's Yes Is patient alert and oriented? Yes Barriers to Discharge Yes Comment Current IVDU Discharge Plan Home Transportation Arrangement Friend Referrals Initiated None needed Additional Comment At this time Whiteboard Updated in Patient Room with Yes name and ext. # of Tractor Driver Teamster
[2020-12-12] MEDS: METHADONE 10 MG TABLET PO (09:04)
--- NOTE | 2020-12-12 09:05 | PM.DS.1 ---
History of Present Illness History of Present Illness Date Patient Seen: 12/12/20 Chief complaint: abscess has opened up on leg Narrative: Mr. Rodarte is a 40M with PMH IVDU, smoker, untreated Hep C who presents with purulence draining from a known R thigh abscess and worsening pain. He has been to the ED multiple times in the past few weeks for this issue. He does inject heroin and had been injecting into his right thigh, though he says he has not injected there for a few weeks. He uses heroin and meth, sometimes injects now into the left leg, but has also been smoking more recently. He came to the ED on 11/14 with swelling and redness on the right leg. He was diagnosed with an abscess, had it drained and was prescribed antibiotics. He presented again on 12/04 as a few days prior to this he noted the swelling in his thigh became worse. He was recommended to have drainage but he left against medical advice. He comes back in because the thigh is draining pus and he notes swelling and pain in his right groin. He has no fevers/chills. He has been taking his doxycycline at home with no missed doses. In the ED workup was done, vitals showed no fever, tachycardia, and a normal blood pressure. WBC 6.8, creatinin 0.93, lactate 1.0. CT showed a subcutaneous fat stranding and fluid and underneath a loculated subcutaneous fluid collection 3.9x1.2x12.5cm. He was given IV antibiotics. Orthopedic surgery was consulted. He was admitted for further treatment. Family History: patient denied that his mother and father had any medical conditions, and he knows of no other family with medical issues Discharge Providers Provider Date of admission: 12/10/20 23:23 Discharge Date: 12/12/20 Primary care physician: DONNA Jean-Baptiste Consults: 12/10/20 23:07 Consult to Orthopedic Surgery Stat Comment: Consulting Provider: Destiny Thayer Reason for consultation: abscess Has provider been notified: Yes 12/11/20 00:27 Consult to TOASTER ELEMENT REPAIRER - Communications Instructor Routine Comment: TOASTER ELEMENT REPAIRER Consult: Substance Abuse Assess 12/11/20 17:46 Consult to Discharge Planning Routine Comment: Consult to Physical Therapy Evaluate & Treat Comment: Physician Instructions: Evaluate and Treat Consult to Respiratory Therapy Evaluate & Treat Comment: Physician Instructions: Evaluate and treat Discharge provider: Bambi Escudero MD Summary Hospital Course Discharge Diagnosis: 1. Right thigh abscess, status post incision and drainage 2. Strep virdians, growing from the abscess 3. Opiate dependence 4. Hepatitis-C Hospital Course: Patient was admitted to the hospital for treatment and evaluation of a right thigh abscess. Patient had been to the hospital multiple times for evaluation. He does admit to injecting heroin and had been injecting into the right thigh. He uses heroin and meth. Injects into the left leg. The patient was noted to have swelling of the right thigh. A CT scan confirmed a complex fluid collection. The patient was taken to the operating room by Dr. Thayer. In the OR the patient underwent I&D. There was necrotic skin in excised removal of the necrotic muscle and subcutaneous tissue. There was dissection down to the facet fascia. The deep abscess was drained. Wound was placed. Patient was returned to the hospital. His pain is well controlled today. The wound is clean and dry there is minimal erythema. Cultures were obtained in the OR which are growing strep viridans. Patient is appropriate for discharge and will be discharged home. He will be discharged on Sultana for pain. He is instructed to follow-up with the wound care clinic for ongoing management of his thigh abscess. He also will go to outpatient treatment to decide on either methadone or Suboxone for long-term treatment of his opioid dependence. Status at Discharge Cognitive/behavioral status at discharge: oriented Functional status at discharge: independent ambulation Overall status at discharge: patient is back to baseline Exam Vital Signs (past 8 hours): - 12/12/20 04:54 Temperature 97.8 F Pulse Rate 58 L Respiratory Rate 16 Blood Pressure 131/79 Pulse Oximetry 99 Oxygen Delivery Method Room Air Oxygen Flow Rate 0 Narrative Exam Narrative: Pleasant gentleman resting comfortably Resp Other: Lungs clear to auscultation Cardio Other: Cardiac exam: Regular rate and rhythm normal S1-S2 GI Other: Abdomen soft and nontender Extrem Other: Right thigh wound clean and dry, there is mild erythema, dressing in place. Dressing will be changed today Objective Labs Result Diagrams: 12/10/20 21:10 12/10/20 21:10 [facility] Medical History Hepatitis C IVDU (intravenous drug user) Social History household members: significant other Smoking Status: Current every day smoker alcohol intake: former substance use type: heroin and IV drugs Discharge Assessment & Plan Assessment and Plan Assessment: Left thigh abscess status post I&D Opiate dependent Plan of Treatment: Augmentin 875 b.i.d. for 7days Follow-up with the wound care clinic Outpatient treatment for opioid dependence Discharge Plan Discharge Plan Patient Disposition: Home Discharge orders & Medications Prescriptions: New oxycodone 10 mg tablet 10 mg PO TID PRN (Reason: pain) Qty: 20 RF: 0 amoxicillin-pot clavulanate [Augmentin] 875-125 mg tablet 1 tab PO BID Qty: 14 RF: 0 Follow up/Referrals: Chely Jiménez ARNP [Primary Care Provider] - Discharge Data Primary Care Provider: Chely Jiménez Quality VTE Deep Vein Thrombosis/Pulmonary Embolism Present on Admission: Yes
[2020-12-12] MEDS: HYDROCODONE/ACET 10/325 TABLET 1 TAB PO (09:33)
--- NOTE | 2020-12-12 11:01 | PC.NURSE ---
Pt A&OX3, ambulating independently in room. Pt reports pain 09/20 this a.m. while eating breakfast. Good po intake. MD at bedside this a.m. evaluating patient and cleared him for discharge home with oral antibiotics and pain medication. Dressing changed to R thigh, clean dry. No drainage. He verbalizes aggreement and understanding of discharge plan and he is escorted via w/ch to private vehicle with spouse with all of his belongings this a.m. at approximately 10 a.m.
== END 2020-12-12 09:54 | disposition home or self-care (01) | DRG 364 ==
LOC: ED 23:22 → AC 12-11 08:26
PROVIDERS: Orthopaedic Surgery; Admitting Provider Internal Medicine; Emergency Provider Emergency Medicine; PCP Nurse Practitioner Family; Referring Provider Emergency Medicine; Visit Provider Internal Medicine
PROC: 0KBQ0ZZ Excision of Right Upper Leg Muscle, Open Approach (ICD-10-PCS; principal; 2020-12-11 15:15)
DX: L02.415 Cutaneous abscess of right lower limb (principal); L97.111 Non-pressure chronic ulcer of right thigh limited to breakdown of skin; F15.10 Other stimulant abuse, uncomplicated; B19.20 Unspecified viral hepatitis C without hepatic coma; F11.20 Opioid dependence, uncomplicated; I96 Gangrene, not elsewhere classified; F17.200 Nicotine dependence, unspecified, uncomplicated; B95.4 Other streptococcus as the cause of diseases classified elsewhere; Z20.822 Contact with and (suspected) exposure to COVID-19
CPT/HCPCS: 36415; 73701; 80048; 83605; 85025; 87040; 87070; 87075; 87077; 87186; 87205; 87635; 96365; 96367; 99284; C9803; J0696; J1100; J1170; J1644; J2060; J2405; J2704; J3010; J7050; Q9967

== ENCOUNTER → 2020-12-16 08:31 | Outpatient (CLI) | payer OTHER, MEDICAID, SELFPAY ==
[2020-12-11 00:44] VITALS: BMI 23.3
== END ==
PROVIDERS: PCP Nurse Practitioner Family; Referring Provider Physical Medicine & Rehabilitation; Visit Provider Family Medicine
DX: S71.101A Unspecified open wound, right thigh, initial encounter (principal); L08.9 Local infection of the skin and subcutaneous tissue, unspecified; Z72.0 Tobacco use; F11.10 Opioid abuse, uncomplicated; F15.10 Other stimulant abuse, uncomplicated; B95.4 Other streptococcus as the cause of diseases classified elsewhere
CPT/HCPCS: 11042; 11045; 99204; 99213

== ENCOUNTER 2021-02-18 13:34 | Emergency (ER) | payer OTHER, MEDICAID, SELFPAY ==
[2020-12-11 00:44] VITALS: BMI 23.3
[2021-02-18 13:41] VITALS: BP 138/74; PULSE 118; RESP 20; TEMP 38.7; O2SAT 94; BMI 23.0
--- NOTE | 2021-02-18 13:54 | DI.RAD.S_ITS ---
PROCEDURE: XR CHEST 2V INDICATIONS: cough, sob TECHNIQUE: 2 views of the chest were acquired. COMPARISON: [facility], CR, XR CHEST 1V, 05/24/2020, 15:58. FINDINGS: Surgical changes and devices: None. Lungs and pleura: Lungs are clear. No pleural effusions or pneumothorax. Mediastinum: Mediastinal contours are normal. Heart size is normal. Bones and chest wall: No suspicious bony abnormalities. Soft tissues appear unremarkable. IMPRESSION: No acute process. Dictated by: Chhaya Anen M.D. on 02/18/2021 at 14:03 Approved by: Chhaya Anne M.D. on 02/18/2021 at 14:03
[2021-02-18 14:20] LABS: COVID19 -Nasal RAPID POSITIVE (Negative)
[2021-02-18] MEDS: ACETAMINOPHEN 325 MG TABLET 975 MG PO (15:58)
[2021-02-18 16:06] VITALS: BP 122/70; PULSE 98; RESP 22; TEMP 38.1; O2SAT 98
--- NOTE | 2021-02-18 16:15 | ED.URI ---
HPI - URI/Sore Throat General Chief Complaint: Upper Respiratory Symptoms Stated Complaint: cough blood, congestion, sore throat, body aches Time Seen by Provider: 02/18/21 16:01 Source: patient Mode of arrival: Ambulatory Limitations: no limitations History of Present Illness HPI Narrative: This is a 40-year-old male comes emergency department for concern for COVID infection. Patient was at a drug treatment facility were multiple patients were positive for COVID and there was an outbreak in patients were discharged home. He tested positive on Tuesday but wanted to be retested. He has had fevers, headache, nasal congestion, chest congestion. He denies shortness of breath he has not any nausea or vomiting. No diarrhea constipation. No swelling that is new. He does have a history of hepatitis-C. Patient is on Suboxone recently for addiction, Lyrica as well as several other new medications. He denies any allergies to medications besides sulfa. Related Data Previous Rx's Medication Instructions Recorded amoxicillin 875 mg-potassium 1 tab PO BID #14 tab 12/12/20 clavulanate 125 mg tablet (Augmentin) oxycodone 10 mg tablet 10 mg PO TID PRN #20 tab 12/12/20 Allergies Allergy/AdvReac Type Severity Reaction Status Date / Time Sulfa (Sulfonamide Allergy Unknown Verified 09/24/20 17:47 Antibiotics) [SULFA (SULFONAMIDE ANTIBIOTICS)] Review of Systems Review of Systems ROS Unobtainable: All systems reviewed & are unremarkable except as noted in HPI and below Patient History Medical History Hepatitis C IVDU (intravenous drug user) Social History household members: significant other Smoking Status: Current every day smoker alcohol intake: former substance use type: heroin and IV drugs Smoking Status: Current every day smoker tobacco type: vaping alcohol intake frequency: 0-2 drinks per day Substance Use Type: does not use, heroin and methamphetamine Exam Narrative Exam Narrative: GENERAL: Alert and oriented x three, male in mild distress. HEENT: Head normocephalic, atraumatic, EOMI, pupils reactive, face symmetric, moist mucous membranes NECK: Supple, full range of motion CARDIOVASCULAR: Regular rate and rhythm without murmurs, rubs or gallops. RESPIRATORY: Breath sounds equal bilaterally, no wheezes rales or rhonchi. ABDOMEN: Soft, nontender. Normoactive bowel sounds all 4 quadrants. No guarding or rebound, rigidity, no mass : No CVA tenderness EXTREMITIES: Normal range of motion, no edema. Neurovascularly intact NEUROLOGICAL: Cranial nerves II through XII grossly intact. Moving all extremities SKIN: Warm, dry, no petechiae, no rashes or lesions. Initial Vital Signs Initial Vital Signs: Vital Signs Temperature 101.7 F H 02/18/21 13:41 Pulse Rate 118 H 02/18/21 13:41 Respiratory Rate 20 02/18/21 13:41 Blood Pressure 138/74 02/18/21 13:41 Pulse Oximetry 94 02/18/21 13:41 Course Orders Ordered: ED Orders 02/18/21 13:44 COVID19 -Nasal swab/Pre-Proc Stat 02/18/21 13:54 XR chest 2V Stat Discontinued Medications Acetaminophen (Acetaminophen 325 Mg Tablet) 975 mg PO NOW ONE Stop: 02/18/21 15:22 Last Admin: 02/18/21 15:58 Dose: 975 mg Documented by: BEVERLY Vital Signs Vital signs: Vital Signs - 8 hr 02/18/21 13:41 02/18/21 16:06 02/18/21 16:40 Temperature 101.7 F H 100.5 F H Pulse Rate 118 H 98 H 107 H Respiratory Rate 20 22 18 Blood Pressure 138/74 122/70 131/74 Pulse Oximetry 94 98 98 MDM - URI/Sore Throat Lab Data Labs: Lab Results 02/18/21 Range/Units 13:44 SARS-CoV-2 (PCR) Positive H (Negative) Imaging Data Chest x-ray: Radiologist's Impression: Steven Rodarte??40??M??1980 ? Allergy/Adv: Sulfa (Sulfonamide Antibiotics) (More??) Close Chest X-Ray (Signed) Chhaya Anne - 02/18/[address] (Signed) Ishan Cowart - 12/10/20 Chest X-Ray (Signed) Tye Nixon - 05/24/20 Launch?[address] [address] XRay Report Signed Patient: Steven Rodarte MR#: [id number] : 1980 Acct:[id number] Age/Sex: 40 / M Date of Service: 02/18/21 Loc: ED Accession Number: [id number] ?? Procedure: XR chest 2V Ordering Provider: Jaye Marvin D.O. PROCEDURE:? XR CHEST 2V ? INDICATIONS:? cough, sob ? TECHNIQUE:? 2 views of the chest were acquired.? ? COMPARISON:? [facility], , XR CHEST 1V, 05/24/2020, 15:58. ? FINDINGS:? ? Surgical changes and devices:? None.? ? Lungs and pleura:? Lungs are clear.? No pleural effusions or pneumothorax.? ? Mediastinum:? Mediastinal contours are normal.? Heart size is normal.? ? Bones and chest wall:? No suspicious bony abnormalities.? Soft tissues appear unremarkable.? ? IMPRESSION:? No acute process. ? ? Dictated by: Chhaya Anne M.D. on 02/18/2021 at 14:03 ? ? Approved by: Chhaya Anne M.D. on 02/18/2021 at 14:03?? MDM Narrative Medical decision making narrative: This is a 40-year-old male who comes to the emergency department with concern for COVID infection typical symptoms. He is vaccinated with [employer] 2 months ago. Patient's chest x-ray is negative. He was tachycardic initially but also febrile in the 101 range. That is improved as is temperature is coming down Tylenol. He has not been hypoxic. Discharge Plan Departure Patient Disposition: Home Clinical Impression: COVID-19 virus infection Activity Restrictions/Additional Instructions: *You have been diagnosed with COVID infection. Your x-ray today does not show any signs of pneumonia. If you wish you may obtain a pulse oximeter for use at home to monitor. Please return to the ER if your pulse oximeter shows an O2 saturation less than 90%. You may take Tylenol up to a 1000 mg every 8 hours and/or ibuprofen up to 800 mg every 8 hours. *What to do: * per recommendations from the CDC and the [facility] Department of Health * stay home except to get medical care. Restrict activities outside your home, except for getting medical care. Do not go to work, school, or public areas. Avoid using public transportation, ride sharing, or taxis. * separate yourself from other people in your home. * call ahead before visiting your doctor * Wear a face mask * Cover your coughs and sneezes * Clean your hands often * Avoid sharing household items * Clean all high-touch services every day * Monitor your symptoms and seek prompt medical attention if your illness is worsening, particularly with difficulty in breathing. Discussed continuing home isolation * for individuals with symptoms who are confirmed or suspected cases of COVID-19 and are directed to care for themselves at home, discontinue home isolation under the following conditions: 1. At least 72 hours have passed since recovery, defined as resolution of fever without the use of fever reducing medications, and improvement in respiratory symptoms (cough, shortness of breath) AND, 2. At least 7 days have passed since symptoms 1st appeared Individuals with laboratory confirmed COVID-19 who have not had any symptoms may discontinue home isolation when at least 7 days have passed since the date of their 1st COVID-19 diagnostic test and have had no subsequent illness Prescriptions: No Action amoxicillin-pot clavulanate [Augmentin] 875-125 mg tablet 1 tab PO BID Qty: 14 0RF oxycodone 10 mg tablet 10 mg PO TID PRN (Reason: pain) Qty: 20 0RF Referrals: Chely Jiménez ARNP [Primary Care Provider] -
[2021-02-18 16:40] VITALS: BP 131/74; PULSE 107; RESP 18; O2SAT 98
== END 2021-02-18 16:40 | disposition home or self-care (01) ==
PROVIDERS: Emergency Provider Emergency Medicine; PCP Nurse Practitioner Family
DX: U07.1 COVID-19 (principal)
CPT/HCPCS: 71046; 87635; 99283; C9803